=== PATIENT | female | born 1955 | race Caucasian/White ===

== ENCOUNTER → 2016-12-23 | Outpatient (CLI) | payer OTHER ==
--- NOTE | 2016-12-23 15:32 | REPMRS ---
Patient History The patient states she had a clinical breast exam in 12/2016. Patient is postmenopausal. Family history of colorectal cancer in maternal grandmother at age 50 or over. Benign excisional biopsy of the left breast. Benign excisional biopsy of the right breast. Digital Woman Screen Mammo: December 23, 2016 - Exam #: [id number] Bilateral CC and MLO view(s) were taken. Technologist: Brinda Julian, Technologist Prior study comparison: December 02, 2015, digital woman screen mammo performed at [facility]. July 24, 2014, digital woman screen mammo performed at [facility]. FINDINGS: There are scattered fibroglandular densities. There has been no change in the appearance of the mammogram from the prior studies. There is a mild amount of scattered fibroglandular density which is fairly symmetric. There is no interval development of dominant mass, architectural distortion, or clustered microcalcification suggestive of malignancy. ASSESSMENT: BI-RADS/ACR category 1 mammogram. Negative. Recommendation Routine screening mammogram in 1 year (for women over age 40). This mammogram was interpreted with the aid of an FDA-approved computer-aided dectection system. Electronically Signed By: Luis Sy MD 12/23/16 [id number]
== END ==
LOC: M WHC 14:17
PROVIDERS: ATTEND Nurse Practitioner Family
DX: Z12.31 Encounter for screening mammogram for malignant neoplasm of breast (principal)

== ENCOUNTER → 2016-12-23 | Outpatient (REF) | payer OTHER | LOC: M SFHCWAGY 14:49 | PROVIDERS: ATTEND Nurse Practitioner Family | DX: Z12.4 Encounter for screening for malignant neoplasm of cervix (principal) ==

== ENCOUNTER → 2017-04-30 | Outpatient (CLI) | payer OTHER ==
[2017-04-30 18:36] LABS: ALBUMIN 3.5 GM/DL (3.2-5.2); ALBUMIN/GLOBULIN RATIO 0.95 (1.00-1.93); ALKALINE PHOSPHATASE 86 U/L (45-117); ALT/SGPT 32 U/L (12-78); ANION GAP 8 MEQ/L (8-16); AST/SGOT 24 U/L (15-37); BILIRUBIN,TOTAL 0.5 MG/DL (0.2-1.0); BLOOD UREA NITROGEN 18 MG/DL (7-18); CALCIUM LEVEL 8.9 MG/DL (8.8-10.2); CARBON DIOXIDE LEVEL 26 MEQ/L (21-32); CHLORIDE LEVEL 106 MEQ/L (98-107); CHOLESTEROL LEVEL 222 MG/DL (<200); CREATININE FOR GFR 0.85 MG/DL (0.55-1.02); GLOMERULAR FILTRATION RATE > 60.0 (>45); GLUCOSE, FASTING 81 MG/DL (80-110); POTASSIUM SERUM 4.1 MEQ/L (3.5-5.1); SODIUM LEVEL 140 MEQ/L (136-145); TOTAL PROTEIN 7.2 GM/DL (6.4-8.2); TRIGLYCERIDES LEVEL 83 MG/DL (<150)
== END ==
LOC: M LAB 17:03
DX: Z13.220 Encounter for screening for lipoid disorders (principal); Z11.59 Encounter for screening for other viral diseases; F10.10 Alcohol abuse, uncomplicated

== ENCOUNTER → 2017-05-06 | Outpatient (CLI) | payer OTHER ==
--- NOTE | 2017-05-10 10:48 | DEXA ---
AP SPINE L1 - L4 1.284 0.7 2.2 LT FEMUR TOTAL 0.927 -0.6 0.5 RT FEMUR TOTAL 0.971 -0.3 0.8 TOTAL BODY TOTAL OTHER DUAL FEMUR FRAX* ASSESSMENT Risk factors: History of adult fracture, EtOH abuse. 10 year probability of fracture Major osteoporotic fracture 14.5 % Hip fracture 1.2 % COMMENTS: Normal bone densitometry of the spine. Normal bone densitometry of the left hip. There is low bone density of the right hip. The density of the spine has increased 2.1% since 12/2014. The density of the left hip has decreased 6.8% since 12/2014. The density of the right hip has decreased 8.3% since 12/2014. The increased density of the spine does represent a significant change. The decreased density of the left hip does represent a significant change. The decreased density of the right hip does represent a significant change. FOLLOW-UP: Recommendation for the next bone density exam: 2 years. SKYLA
== END ==
LOC: M WHC 11:26
DX: F10.10 Alcohol abuse, uncomplicated (principal)

== ENCOUNTER 2017-10-29 17:44 | Outpatient (CLI) | payer OTHER | END 2017-10-30 | LOC: M RAD 17:44 | DX: D18.01 Hemangioma of skin and subcutaneous tissue (principal); I67.82 Cerebral ischemia | CPT/HCPCS: 70551 ==

== ENCOUNTER 2017-12-06 17:51 | Emergency (ER) | payer OTHER | END 2017-12-06 23:32 | disposition home or self-care (01) | LOC: M ED 17:51 | DX: S82.854A Nondisplaced trimalleolar fracture of right lower leg, initial encounter for closed fracture (principal); W00.0XXA Fall on same level due to ice and snow, initial encounter; Y92.410 Unspecified street and highway as the place of occurrence of the external cause; Z79.899 Other long term (current) drug therapy; J30.81 Allergic rhinitis due to animal (cat) (dog) hair and dander | CPT/HCPCS: 73590 ==

== ENCOUNTER → 2017-12-11 | Outpatient (CLI) | payer OTHER | LOC: M EKG 10:48 | DX: S82.431A Displaced oblique fracture of shaft of right fibula, initial encounter for closed fracture (principal); W18.30XA Fall on same level, unspecified, initial encounter; Y92.009 Unspecified place in unspecified non-institutional (private) residence as the place of occurrence of the external cause | CPT/HCPCS: 93005 ==

== ENCOUNTER → 2018-05-12 | Outpatient (REF) | payer OTHER | LOC: M SFHCPLAZ 14:29 | DX: F32.9 Major depressive disorder, single episode, unspecified (principal) | CPT/HCPCS: 84443 ==

== ENCOUNTER → 2018-06-08 | Outpatient (REF) | payer OTHER ==
[2018-06-10 14:46] LABS: HPV HYBRID CAPTURE II Negative (Negative)
== END ==
LOC: M SFHCWAGY 09:33
DX: Z12.4 Encounter for screening for malignant neoplasm of cervix (principal)

== ENCOUNTER → 2018-06-11 | Outpatient (CLI) | payer OTHER | LOC: M RAD 14:48 | DX: D18.01 Hemangioma of skin and subcutaneous tissue (principal) | CPT/HCPCS: 70551 ==

== ENCOUNTER → 2018-06-16 | Outpatient (CLI) | payer OTHER | LOC: M RAD 09:25 | DX: N63.12 Unspecified lump in the right breast, upper inner quadrant (principal); R92.1 Mammographic calcification found on diagnostic imaging of breast | CPT/HCPCS: 77066 ==

== ENCOUNTER → 2018-07-06 | Outpatient (CLI) | payer OTHER ==
[~2018-07-06] MED LIST: LIDOCAINE 1% MDV 20ML VIAL As Ordered
== END ==
LOC: M RADPRO 12:36
DX: N63.0 Unspecified lump in unspecified breast (principal)
CPT/HCPCS: 76642

== ENCOUNTER → 2018-12-13 | Outpatient (CLI) | payer MEDICARE ==
[~2018-12-13] MED LIST changes: +FOLI1TAB11; -LIDOCAINE 1% MDV 20ML VIAL As Ordered; +NORCOTAB PO; +PROZ20CA11; +VITA100T8
--- NOTE | 2018-12-13 15:10 | REP ---
RIGHT BREAST ULTRASOUND: 12/13/2018: Comparison: 07/06/2018, 06/16/2018, diagnostic mammogram 06/16/2018. Clinical history: Benign excisional biopsy left breast, Follow-up for retroareolar dilated ducts with a 4 mm dense nodular density in one of the ducts 06/16 19, not visible on 07/06/2018. Follow-up. Findings: Sonographic evaluation shows one dilated duct 2.4 mm in diameter for length of 9 mm. There are no other dilated ducts. There is no filling defect visible within. Some artifact on some of the images is noted in the retroareolar zone. Impression: 1. BIRADS ACR category 2, benign finding. One dilated duct without filling defects. Maximum diameter 2.4 mm. No gross mass, architectural distortion or other acute finding. Recommend: Follow up with bilateral mammogram in 05/2019. This negative report should not deter further evaluation of a dominant or suspicious physical finding.
== END ==
LOC: M WHC 12:50
PROVIDERS: ATTEND Internal Medicine
DX: N63.12 Unspecified lump in the right breast, upper inner quadrant (principal)

== ENCOUNTER → 2019-07-05 | Outpatient (CLI) | payer MEDICARE ==
[~2019-07-05] MED LIST changes: +HYDR-3715 PO; -NORCOTAB PO
--- NOTE | 2019-07-05 14:33 | REP ---
BILATERAL MAMMOGRAM WITH 3D TOMOSYNTHESIS, RIGHT BREAST ULTRASOUND: Bilateral mammogram performed in the MLO and CC projections with 3D tomosynthesis. Comparison is made with prior studies most recent of which is 06/16/2018. Moderate heterogeneous fibroglandular tissue is stable. No new mass or clustered microcalcifications are seen. There are bilateral axillary and axillary tail lymph nodes, which appear unchanged in size. No suspicious clusters of microcalcifications are seen. Real-time sonographic evaluation of right retroareolar region is performed to evaluate for any possible nodule. An echogenic nodule was suspected on the prior ultrasound 06/16/2018 but could not be reproduced at the time of the scheduled biopsy 07/06/2018. The ultrasound once again shows mildly dilated ducts. Heterogeneous tissue is again seen unchanged in appearance when compared to the prior ultrasound with no suspicious nodule. IMPRESSION: BIRADS 2: BI-RADS/ACR category 2 mammogram. Benign Findings. ACR2 benign. No new mass or clustered microcalcifications bilaterally. No suspicious mass seen in the right retroareolar region sonographically. Recommend followup mammogram in 1 year. Patient letter being requested is M1. Electronically Signed by Jordin De Leon MD 07/06/2019 09:34 A
== END ==
LOC: M RAD 11:25
PROVIDERS: ATTEND Internal Medicine
DX: N63.10 Unspecified lump in the right breast, unspecified quadrant (principal); Z12.31 Encounter for screening mammogram for malignant neoplasm of breast
CPT/HCPCS: 76642; 77066; G0279

== ENCOUNTER → 2020-08-27 | Outpatient (REF) | payer MEDICARE | LOC: M SFHCPLAZ 13:17 | PROVIDERS: ATTEND Physician Assistant | DX: S60.311A Abrasion of right thumb, initial encounter (principal); X58.XXXA Exposure to other specified factors, initial encounter; Y92.9 Unspecified place or not applicable; L02.511 Cutaneous abscess of right hand; Z23 Encounter for immunization | CPT/HCPCS: 10060; 87070; 87077; 87186; 90472; 90682; 90715; G0008 ==

== ENCOUNTER 2020-12-18 14:36 | Emergency (ER) | payer MEDICARE ==
[~2020-12-18] VITALS: Ht 162.6 cm; Wt 94.2 kg
[~2020-12-18 14:36] MED LIST changes: -PROZ20CA11; +PROZ20CA11 PO
--- OUTSIDE RECORDS SUMMARY | 2020-12-18 14:48 | CCD ---
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 3 1750374 Problem Alcohol abuse F10.10 Active 07073041 Problem Screening for breast cancer Z12.39 Active 2433 92506 Problem Mixed hyperlipidemia E78.2 Active 362348284 ALLERGIES Allergen (clinical drug ingredient) Drug/Non Drug Allergy do cumented on EMR Reaction Allergy Type Onset Date Status dust cold symptoms Non Drug Allergy Activ e cats dyspnea Non Drug Allergy Active ENCOUNTERS from 1955 to 2020-11-05 Encounter Location Date Provider Diagnosis [address] [address] 11 Oct, 2020 [facility] IMMUNIZATIONS Vaccine Route Administration Date Status Influenza (18 yrs & older) Flublok IM Intramuscular Aug 04, 2018 Administered Pneumococcal Adult 0.5mL (Pneumovax 23) IM Intramuscular Jun Administered TDAP 0.5mL (Boostrix) IM Intramuscular Aug 27, 2020 Administe red TDAP 0.5mL (Boostrix) Unknown Aug 23, 2014 Administer ed Pneumococcal 0.5mL (Prevnar 13) IM Intramuscular Dec 15, 2019 Administered Influenza (6mo & up) Fluzone IM Intramuscular Oct 01, 2017 Ad ministered Influenza (18 yrs & older) Flublok IM Intramuscular Dec 15, 2019 Administered Influenza (6mo & up) Fluzone IM Intramuscular Jul 10, 2016 Ad ministered Influenza (18 yrs & older) Flublok IM Intramuscular Aug 27, 2020 Administered Influenza (6mo & up) Fluzone IM Intramuscular Jul 18, 2015 Ad ministered Influenza (6mo & up) Fluzone IM Intramuscular Aug 23, 2014 Ad ministered SOCIAL HISTORY Tobacco Use: Social History Observation Description Date Details (start date - stop date) Former Smoker Sex Assigned At : Social History Observation Description Sex Assigned At Unknown Education: Question Answer Notes Level of Education: Finished High School Audit Question Answer Notes Total Score: 3 Interpretation: Alcohol Education Nondenominational: Question Answer Notes Nondenominational 21 Taoism Sexual Hx: Question Answer Notes Had sex in the last 12 months (vaginal, oral, or anal)? No Have you ever had an STD? No Drug and Alcohol Question Answer Notes Total Score: 0 Interpretation: No problems reported Alcohol Screening: Question Answer Notes Did you have a drink containing alcohol in the past year? Ye s Points 6 Interpretation Positive How often did you have six or more drinks on one occas ion in the past year? Less than monthly (1 point) How many drinks did you have on a typica l day when you were drinking in the past year? 3 or 4 (1 point) How often did you have a drink containing alcohol in t he past year? Four or more times a week (4 points) BMI Care Goal Follow-Up Question Answer Notes Above Normal BMI Follow-Up Dietary management educatio n, guidance, and counseling, Giving encouragement to exercise Tobacco Use: Question Answer Notes Are you a: former smoker How long has it been since you last smoked? > 10 years REASON FOR REFERRAL No Information VITAL SIGNS No information MEDICATIONS Medication SIG (Take, Route, Frequency, Duration) Notes Start Da te End Date Status Prozac 20 mg 2 capsules orally Daily for 30 day(s) Not-Taking Vitamin D (Cholecalciferol) 1000 UNIT 1 capsule Orally Once a day Not-Taking Prozac 20 MG take two capsules by mouth e very day Orally Once a day for 30 day(s) Active Bactrim DS 800-160 MG 1 tablet Orally Twice a day for 10 day(s) Aug, Active Prozac 20 MG TAKE TWO CAPSULES BY MOUTH EVERY DAY Ora lly Once a day for 30 days Active PROCEDURES No Information RESULTS No Results REASON FOR VISIT refill prozac MEDICAL (GENERAL) HISTORY Type Description Date Medical History depression/anxiety Medical History cat.4 mammogram/2004, had mr i delmis./ 2005 , Mammography 11/2015- category 1 Medical History environmental allergies Medical History alcoholism Medical History Nontoxic multinodular goiter -negative for malignancy with variable sized follicular groups, Hurthle cells, macrophages, and scattered lymphocytes. Followed by Dr. Morris next appt fall 2015 Medical History Colonscopy - latest (09/2014 ) one small hyperplastic polyp resected, non-bleeding internal hemorrhoid Surgical History breast biopsy/ right breast 2004-atypical ductal hyperplasia, left breast bx. 2005, benign 2004,2005 Surgical History tubal ligation 1995 Surgical History tonsillectomy age 6 Surgical History Colonoscopy, - leonela ne small hyperplastic polyp resected, non-bleeding internal hemorrhoid 09/2014 Surgical History Thyroid BX 04/09/15 Surgical History right ankle surgery 12/16/2017 Hospitalization History related to surgery Goals Section No Information Health Concerns No Information MEDICAL EQUIPMENT No Information MENTAL STATUS No Information FUNCTIONAL STATUS No Information ASSESSMENTS No Information PLAN OF TREATMENT Medication Medication Name Sig Start Date Stop Date Prozac 20 MG take two capsules by mouth e very day Orally Once a day for 30 day(s) Bactrim DS 800-160 MG 1 tablet Orally Twice a day for 10 day(s) Aug, Prozac 20 MG TAKE TWO CAPSULES BY MOUTH EVERY DAY Ora lly Once a day for 30 days Insurance Providers Payer Name Payer Address Payer Phone Insured Name Patient Relati onship to Insured Coverage Start Date Coverage End Date MEDICARE COMPLETE [facility] [address] [address] [facility] [phone] MARCIAL CMAPOS self MEDICAID [facility] [employer] [address] [facility] [id number] MARCIAL CAMPOS self
--- OUTSIDE RECORDS SUMMARY | 2020-12-18 14:48 | CCD ---
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 3 3993435 Problem Alcohol abuse F10.10 Active 76382480 Problem Screening for breast cancer Z12.39 Active 2431 94231 Problem Mixed hyperlipidemia E78.2 Active 611576789 ALLERGIES Allergen (clinical drug ingredient) Drug/Non Drug Allergy do cumented on EMR Reaction Allergy Type Onset Date Status Dust dust cold symptoms Non Drug Allergy Activ e cats dyspnea Non Drug Allergy Active ENCOUNTERS from 1955 to 2020-11-07 Encounter Location Date Provider Diagnosis [facility] [place] [place] Resident [address] [place] [address] 13 Oct, 2020 [facility] IMMUNIZATIONS Vaccine Route Administration Date Status Influenza (18 yrs & older) Flublok IM Intramuscular Dec 15, 2019 Administered Influenza (18 yrs & older) Flublok IM Intramuscular Aug 04, 2018 Administered Pneumococcal Adult 0.5mL (Pneumovax 23) IM Intramuscular Jun Administered TDAP 0.5mL (Boostrix) Unknown Aug 23, 2014 Administer ed Pneumococcal 0.5mL (Prevnar 13) IM Intramuscular Dec 15, 2019 Administered Influenza (6mo & up) Fluzone IM Intramuscular Oct 01, 2017 Ad ministered Influenza (18 yrs & older) Flublok IM Intramuscular Aug 27, 2020 Administered Influenza (6mo & up) Fluzone IM Intramuscular Jul 10, 2016 Ad ministered TDAP 0.5mL (Boostrix) IM Intramuscular Aug 27, 2020 Administe red Influenza (6mo & up) Fluzone IM Intramuscular [...] Notes Total Score: 3 Interpretation: Alcohol Education Quaker: Question Answer Notes Quaker 21 Christianity Sexual Hx: Question Answer Notes Had sex [...] Information RESULTS No Results REASON FOR VISIT No Information MEDICAL (GENERAL) HISTORY Type Description Date Medical History depression/anxiety Medical History cat.4 mammogram/2004, had mr lois delmis./ 2005 , Mammography 11/2015- category 1 [...] Start Date Coverage End Date MEDICARE COMPLETE [facility] [address] [address] [facility] [id number] MARCIAL MARQUEZ self MEDICAID [facility] [address] [facility] [id number] MARCIAL MARQUEZ self
--- OUTSIDE RECORDS SUMMARY | 2020-12-18 14:48 | CCD ---
Author Author [facility] Organization [facility] Address [address] [place], [place] [address] Phone Care Team Providers Care Varnishing Unit Tool Setter Name Role Phone JUNIOR REYES Unavailable Allergies, Adverse Reactions, Alerts No Known Drug Allerg ies 10/01/2019 Medications * Continue: * CHINTAN HOLM DOG TRACK KENNEL MANAGER * Augmentin 875 mg-125 mg tablet , Take 1 tablet orally Every 12 hours 10/01/2019 * Flonase Allergy Relief 50 mcg/actuation nasal spray,suspension , Take 2 spray, suspension (mL) nasally Every day 10/01/2019 * Pre-existing: * PROzac 40 mg capsule Problems Acute sinusitis, unspecified (J01.90) Wheezing (R06.2) 10/01/2019 Encounter for observation for suspected exposure to other biological agents ruled out (Z03.818) 09/29/2020 Cough (R05) 09/29/2020 Myalgia, unspecified site (M79.10) 2019 Results SARS COV2 SOURCE: NASOPHARYNGEAL 020 SARS COV 2 BY PCR: DETECTED 09/29/2020 Chief Complaint/Reason for Visit Rapid Covid negativeRapid flu negativePC R sentPatient educated on supportive management and exam did not reveal any findings that would be suggestive of a pneumonia or other bacterial infectionPatient educated on supportive managementFollow up with any worsening symptoms COVID TEST Patient's exam is consistent with an acu te sinusitis and possible ear infectionGiven duration of symptoms and concurrent ear symptoms, I will treat with Augmentin and a nasal sprayDiscussed with patient that drinking while taking this medication will likely cause nausea or diarrheaDaily allergy medication recommended, Tylenol or Motrin as needed for fever or painFollow-up with any worsening symptoms bronchitis Procedures Performed and Ordered Today * MED SERV, ISHA/WKEND/HOLIDAY 09/29/2020 * INFECTIOUS AGENT ANTIGEN DETECTION 09/29/2020 * MED SERV, ISHA/WKEND/HOLIDAY 10/01/2019 * * Lab: Influenza Molecular Test 09/29/2020 COVID PCR 09/29/2020 Vital signs Body Temperature: Heart Rate: BP: Height: Weight: BMI: O2 Percentage BldC Oximetry: Inhale d Oxygen Concentration: 97.9F 09/29/2020 85 beats per minute 09/29/2020 144/92 mmHg 10/01/2019 5ft, 4in 10/01/2019 207lbs 10/01/2019 35.528 10/01/2019 97% 09/29/2020 21% 09/29/2020 Immunizations Social History Smoking Status: Never smoker. 10/01/2019 Reason for Referral Functional Status Plan of Treatment Appointments [facility] ed: Tuesday, October 01, 2019, 11:10 AM, CHINTAN HOLM DOG TRACK KENNEL MANAGER Tuesday, September 29, 2020, 10:15 AM, JING OLSON DOG TRACK KENNEL MANAGER Instructions: The health department is contacted with all positive and negative results. <Follow up with primary care> We will call with lab and/or xray results Testing for COVID19 is negative. However - negative results do not rule out a SARS CoV-2 infection, particularly in those who have been in contact with the virus.PCR sentFlu negativeExam is unremarkableAdvised on supportive symptom managementFollow with any worsening symptomsWork note providedQuarantine until you are notified of results <Follow up with primary care> Return if symptoms worsen When taking antibiotics, also take probiotics. Patient's exam is consistent with an acute sinusitis and possible ear infectionGiven duration of symptoms and concurrent ear symptoms, I will treat with Augmentin and a nasal sprayDiscussed with patient that drinking while taking this medication will likely cause nausea or diarrheaDaily allergy medication recommended, Tylenol or Motrin as needed for fever or painFollow-up with any worsening symptoms Payers Insurance Policy Type Po licy ID Relation Subscriber Expi ration [facility] Commercial Insurance [id number] Self MARCIAL ALMA ID IDENTIFICATION Other Insurance Kirill MARQUEZ Encounters OFFICE/OUTPATIENT SIT, EST 09/29/2020 Diagnoses Encounter for observation for suspected exposure to other biological agents ruled out Cough Myalgia, unspecified site Wheezing OFFICE/OUTPATIENT SIT, NEW 10/01/2019
--- OUTSIDE RECORDS SUMMARY | 2020-12-18 14:48 | CCD ---
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 3 4043363 Problem Alcohol abuse F10.10 Active 94619811 Problem Screening for breast cancer Z12.39 Active 2433 45217 Problem Mixed hyperlipidemia E78.2 Active 603542991 ALLERGIES Allergen (clinical drug ingredient) Drug/Non Drug Allergy do cumented on EMR Reaction Allergy Type Onset Date Status Dust dust cold symptoms Non Drug Allergy Activ e cats dyspnea Non Drug Allergy Active ENCOUNTERS from 1955 to 2020-11-07 Encounter Location Date Provider Diagnosis [address] [address] 08 Oct, 2020 [facility] Major depressive disorder, single episod e, unspecified F32.9 IMMUNIZATIONS Vaccine Route Administration Date Status Influenza [...] Notes Total Score: 3 Interpretation: Alcohol Education Gnosticism: Question Answer Notes Gnosticism 21 Quaker Sexual Hx: Question Answer Notes Had sex [...] Information RESULTS No Results REASON FOR VISIT New Refill Request MEDICAL (GENERAL) HISTORY Type Description Date Medical [...] No Information FUNCTIONAL STATUS No Information ASSESSMENTS Encounter Date Diagnosis Assessment Notes Treatment Notes Treatm ent Clinical Notes Oct, Major depressive disorder, s janis episode, unspecified (ICD-10 - F32.9) PLAN OF TREATMENT Medication Medication Name Sig [...] Start Date Coverage End Date MEDICARE COMPLETE [facility] [address] [facility] [id number] MARCIAL CAMPOS MEDICAID [employer] [address] [facility] [id number] MARCIAL CAMPOS self
--- OUTSIDE RECORDS SUMMARY | 2020-12-18 14:49 | CCD ---
Author Author [facility] Organization [facility] Address Unknown Phone Unavailable Care Team Providers Care Banana Loader Name Role Phone Potter, M Alondra SIGNALS COLLECTOR/ANALYST Unavailable Unavailable Potter, M Alondra SIGNALS COLLECTOR/ANALYST Unavailable Unavailable Potter, M Alondra SIGNALS COLLECTOR/ANALYST Unavailable Unavailable Potter, M Alondra SIGNALS COLLECTOR/ANALYST Unavailable Unavailable Potter, M Alondra SIGNALS COLLECTOR/ANALYST Unavailable Unavailable Potter, M Alondra SIGNALS COLLECTOR/ANALYST Unavailable Unavailable Potter, M Alondra SIGNALS COLLECTOR/ANALYST Unavailable Unavailable Potter, M Alondra SIGNALS COLLECTOR/ANALYST Unavailable Unavailable Potter, M Alondra SIGNALS COLLECTOR/ANALYST Unavailable Unavailable Potter, M Alondra SIGNALS COLLECTOR/ANALYST Unavailable Unavailable Potter, M Alondra SIGNALS COLLECTOR/ANALYST Unavailable Unavailable Potter, M Alondra SIGNALS COLLECTOR/ANALYST Unavailable Unavailable Potter, M Alondra SIGNALS COLLECTOR/ANALYST Unavailable Unavailable Potter, M Alondra SIGNALS COLLECTOR/ANALYST Unavailable Unavailable Potter, M Alondra SIGNALS COLLECTOR/ANALYST Unavailable Unavailable Potter, M Alondra SIGNALS COLLECTOR/ANALYST Unavailable Unavailable Potter, M Alondra SIGNALS COLLECTOR/ANALYST Unavailable Unavailable Potter, M Alondra SIGNALS COLLECTOR/ANALYST Unavailable Unavailable Potter, M Alondra SIGNALS COLLECTOR/ANALYST Unavailable Unavailable Potter, M Alondra SIGNALS COLLECTOR/ANALYST Unavailable Unavailable Potter, M Alondra SIGNALS COLLECTOR/ANALYST Unavailable Unavailable Potter, M Alondra SIGNALS COLLECTOR/ANALYST Unavailable Unavailable Potter, M Alondra SIGNALS COLLECTOR/ANALYST Unavailable Unavailable Potter, M Alondra SIGNALS COLLECTOR/ANALYST Unavailable Unavailable Potter, M Alondra SIGNALS COLLECTOR/ANALYST Unavailable Unavailable Potter, M Alondra SIGNALS COLLECTOR/ANALYST Unavailable Unavailable Potter, M Alondra SIGNALS COLLECTOR/ANALYST Unavailable Unavailable Potter, M Alondra SIGNALS COLLECTOR/ANALYST Unavailable Unavailable Potter, M Alondra SIGNALS COLLECTOR/ANALYST Unavailable Unavailable Potter, M Alondra SIGNALS COLLECTOR/ANALYST Unavailable Unavailable Potter, M Alondra SIGNALS COLLECTOR/ANALYST Unavailable Unavailable Potter, M Alondra SIGNALS COLLECTOR/ANALYST Unavailable Unavailable Potter, M Alondra SIGNALS COLLECTOR/ANALYST Unavailable Unavailable Potter, M Alondra SIGNALS COLLECTOR/ANALYST Unavailable Unavailable Potter, M Alondra SIGNALS COLLECTOR/ANALYST Unavailable Unavailable Potter, M Alondra SIGNALS COLLECTOR/ANALYST Unavailable Unavailable Potter, M Alondra SIGNALS COLLECTOR/ANALYST Unavailable Unavailable Potter, M Alondra SIGNALS COLLECTOR/ANALYST Unavailable Unavailable Potter, M Alondra SIGNALS COLLECTOR/ANALYST Unavailable Unavailable Potter, M Alondra SIGNALS COLLECTOR/ANALYST Unavailable Unavailable Potter, M Alondra SIGNALS COLLECTOR/ANALYST Unavailable Unavailable Potter, M Alondra SIGNALS COLLECTOR/ANALYST Unavailable Unavailable Potter, M Alondra SIGNALS COLLECTOR/ANALYST Unavailable Unavailable Potter, M Alondra SIGNALS COLLECTOR/ANALYST Unavailable Unavailable Potter, M Alondra SIGNALS COLLECTOR/ANALYST Unavailable Unavailable Potter, M Alondra SIGNALS COLLECTOR/ANALYST Unavailable Unavailable Potter, M Alondra SIGNALS COLLECTOR/ANALYST Unavailable Unavailable Potter, M Alondra SIGNALS COLLECTOR/ANALYST Unavailable Unavailable Potter, M Alondra SIGNALS COLLECTOR/ANALYST Unavailable Unavailable Potter, M Alondra SIGNALS COLLECTOR/ANALYST Unavailable Unavailable Potter, M Alondra SIGNALS COLLECTOR/ANALYST Unavailable Unavailable Potter, M Alondra SIGNALS COLLECTOR/ANALYST Unavailable Unavailable Potter, M Alondra SIGNALS COLLECTOR/ANALYST Unavailable Unavailable Potter, M Alondra SIGNALS COLLECTOR/ANALYST Unavailable Unavailable Potter, M Alondra SIGNALS COLLECTOR/ANALYST Unavailable Unavailable RING, K CORBIN PA Unavailable Unavailable RING, K CORBIN PA Unavailable Unavailable RING, K CORBIN PA Unavailable Unavailable RING, K CORBIN PA Unavailable Unavailable RING, K CORBIN PA Unavailable Unavailable RING, K CORBIN PA Unavailable Unavailable RING, K CORBIN PA Unavailable Unavailable RING, K CORBIN PA Unavailable Unavailable RING, K CORBIN PA Unavailable Unavailable RING, K CORBIN PA Unavailable Unavailable RING, K CORBIN PA Unavailable Unavailable RING, K CORBIN PA Unavailable Unavailable RING, K CORBIN PA Unavailable Unavailable RING, K CORBIN PA Unavailable Unavailable RING, K CORBIN PA Unavailable Unavailable RING, K CORBIN PA Unavailable Unavailable RING, K CORBIN PA Unavailable Unavailable RING, K CORBIN PA Unavailable Unavailable RING, K CORBIN PA Unavailable Unavailable RING, K CORBIN PA Unavailable Unavailable RING, K CORBIN PA Unavailable Unavailable Dille, E Tita DDS Unavailable Unavailable Dille, E Tita DDS Unavailable Unavailable Dille, E Tita DDS Unavailable Unavailable Dille, E Tita DDS Unavailable Unavailable Re-disclosure Warning The records that you are about to access may contain information from federally-assisted alcohol or drug abuse programs. If such information is present, then the following federally mandated warning applies: This information has been disclosed to you from records protected by federal confidentiality rules (42 CFR part 2). The federal rules prohibit you from making any further disclosure of this information unless further disclosure is expressly permitted by the written consent of the person to whom it pertains or as otherwise permitted by 42 CFR part 2. A general authorization for the release of medical or other information is NOT sufficient for this purpose. The Federal rules restrict any use of the information to criminally investigate or prosecute any alcohol or drug abuse patient.The records that you are about to access may contain highly sensitive health information, the redisclosure of which is protected by Article 27-F of the [place] State Public Health law. If you continue you may have access to information: Regarding HIV / AIDS; Provided by facilities licensed or operated by the [facility] Office of Mental Health; or Provided by the [facility] Office for People With Developmental Disabilities. If such information is present, then the following [facility] mandated warning applies: This information has been disclosed to you from confidential records which are protected by state law. State law prohibits you from making any further disclosure of this information without the specific written consent of the person to whom it pertains, or as otherwise permitted by law. Any unauthorized further disclosure in violation of state law may result in a fine or group home sentence or both. A general authorization for the release of medical or other information is NOT sufficient authorization for further disc losure. Allergies and Adverse Reactions Type Description Substance Reaction Status Data Source(s ) cats cats cats dyspnea Active eCW1 ([facility]) dust dust dust cold symptoms Active eCW1 (Formerly [facility]) Family History Family Member Name Family Member Gender Family Member Status Date o f Status Description Data Source(s) Unknown Male Problem MEDENT ([facility], ) () Encounters Encounter Providers Location Date Indications Data Source(s ) Unknown [address] [place] [phone] 11/06/2020 12:00:00 AM EST eCW1 (Pending sale to [facility]) Unknown [address] [place] [phone] 11/04/2020 12:00:00 AM EST eCW1 (Pending sale to [facility]) Unknown [address] [place] [phone] 11/01/2020 12:00:00 AM EST eCW1 (Pending sale to [facility]) OutpatientOFFICE/OUTPATIENT VISIT, EST 09/29/2020 Attender: Becky Gutierrez NP 09/29/2020 10:35:02 AM EST 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 ([facility]) Office Visit, Est Pt., Level 3 [address] [place] [address] 08/27/2020 12:00:00 AM EST eCW1 ([facility]) Unknown [address] [place] [phone] 08/26/2020 12:00:00 AM EST [facility] Outpatient Attender: Tita Mancuso ANIBALLeandro CLINT 07/16/2020 12:02:04 A M EDT [facility] Outpatient Attender: Tita Mancuso DDS CLINT 03/24/2020 12:03:02 A M EDT [facility] [place] [address] [facility] [address] 02/07/2020 12:00:00 AM EDT eCW1 [facility]) [facility] [place] [address] [facility] [address] 02/07/2020 12:00:00 AM EDT eCW1 (Pending sale to [facility]) [facility] [address] [facility] [address] 02/05/2020 12:00:00 AM EDT eCW1 (Pending sale to [facility]) [facility] [address] [place] [address], [place] [address] 01/18/2020 12:00:00 AM EDT eCW1 ([facility]) [facility] [place] [address] [place] [phone] 12/15/2019 12:00:00 AM EST eCW1 (Pending sale to [facility]) Outpatient Attender: [facility]ita [facility]uso [facility] 11/13/2019 04:02:01 P M EST [facility] Outpatient Attender: CORBIN Hung 10/21/2019 12:25:00 PM EST MEDENT ([facility] Immunizations Vaccine Date Status Description Data Source(s) Tdap 08/27/2020 10:00:00 AM EST completed e CW1 ([facility]) Tdap 08/27/2020 10:00:00 AM EST completed e CW1 ([facility]) Tdap 08/27/2020 10:00:00 AM EST completed e CW1 ([facility]) Tdap 08/27/2020 10:00:00 AM EST completed e CW1 ([facility]) Tdap 08/27/2020 10:00:00 AM EST completed e CW1 ([facility]) influenza, recombinant, quadrIvalent,injectable, prese rvative free 08/27/2020 09:59:00 AM EST completed eCW1 ([facility]) influenza, recombinant, quadrIvalent,injectable, prese rvative free 08/27/2020 09:59:00 AM EST completed eCW1 ([facility]) influenza, recombinant, quadrIvalent,injectable, prese rvative free 08/27/2020 09:59:00 AM EST completed eCW1 ([facility]) influenza, recombinant, quadrIvalent,injectable, prese rvative free 08/27/2020 09:59:00 AM EST completed eCW1 ([facility]) influenza, recombinant, quadrIvalent,injectable, prese rvative free 08/27/2020 09:59:00 AM EST completed eCW1 ([facility]) influenza, recombinant, quadrIvalent,injectable, prese rvative free 12/15/2019 03:41:00 PM EST completed eCW1 ([facility]) influenza, recombinant, quadrIvalent,injectable, prese rvative free 12/15/2019 03:41:00 PM EST completed eCW1 ([facility]) influenza, recombinant, quadrIvalent,injectable, prese rvative free 12/15/2019 03:41:00 PM EST completed eCW1 ([facility]) influenza, recombinant, quadrIvalent,injectable, prese rvative free 12/15/2019 03:41:00 PM EST completed eCW1 ([facility]) influenza, recombinant, quadrIvalent,injectable, prese rvative free 12/15/2019 03:41:00 PM EST completed eCW1 ([facility]) influenza, recombinant, quadrIvalent,injectable, prese rvative free 12/15/2019 03:41:00 PM EST completed eCW1 ([facility]) Pneumococcal conjugate PCV 13 12/15/2019 03:37:00 PM EST completed eCW1 ([facility]) Pneumococcal conjugate PCV 13 12/15/2019 03:37:00 PM EST completed eCW1 ([facility]) Pneumococcal conjugate PCV 13 12/15/2019 03:37:00 PM EST completed eCW1 ([facility]) Pneumococcal conjugate PCV 13 12/15/2019 03:37:00 PM EST completed eCW1 ([facility]) Pneumococcal conjugate PCV 13 12/15/2019 03:37:00 PM EST completed eCW1 ([facility]) Pneumococcal conjugate PCV 13 12/15/2019 03:37:00 PM EST completed eCW1 ([facility]) Medications Medication Brand Name Start Date Product Form Dose Route Admi nistrative Instructions Pharmacy Instructions Status Indications Reaction Description Data Source(s) 20 mg 11/05/2020 12:00:00 AM EST capsule 60 TAKE TWO CAPSULES BY MOUTH EVERY DAY TAKE TWO CAPSULES BY MOUTH EVERY DAY SOLD: 12/05/2020 [facility] 20 mg 11/05/2020 12:00:00 AM EST capsule 60 TAKE TWO CAPSULES BY MOUTH EVERY DAY TAKE TWO CAPSULES BY MOUTH EVERY DAY SOLD: 11/06/2020 [facility] Sulfamethoxazole 800 MG / Trimethoprim 1 60 MG Oral Tablet [Bactrim] Bactrim DS 800-160 MG Bactrim DS 800-160 MG 08/27/2020 12:00:00 AM EST 1.0 {table t} active Bactrim DS 800-160 MG eCW1 ( [facility]) Sulfamethoxazole 800 MG / Trimethoprim 1 60 MG Oral Tablet [Bactrim] Bactrim DS 800-160 MG Bactrim DS 800-160 MG 08/27/2020 12:00:00 AM EST 1.0 {table t} active Bactrim DS 800-160 MG eCW1 ( [facility]) Sulfamethoxazole 800 MG / Trimethoprim 1 60 MG Oral Tablet [Bactrim] Bactrim DS 800-160 MG Bactrim DS 800-160 MG 08/27/2020 12:00:00 AM EST 1.0 {table t} active Bactrim DS 800-160 MG eCW1 ( [facility]) Sulfamethoxazole 800 MG / Trimethoprim 1 60 MG Oral Tablet [Bactrim] Bactrim DS 800-160 MG Bactrim DS 800-160 MG 08/27/2020 12:00:00 AM EST 1.0 {table t} active Bactrim DS 800-160 MG eCW1 ( [facility]) Sulfamethoxazole 800 MG / Trimethoprim 1 60 MG Oral Tablet [Bactrim] Bactrim DS 800-160 MG Bactrim DS 800-160 MG 08/27/2020 12:00:00 AM EST 1.0 {table t} active Bactrim DS 800-160 MG eCW1 ( [facility]) Sulfamethoxazole 800 MG / Trimethoprim 160 MG Oral Tab let 800-160 mg SULFAMETHOXAZOLE/TRIMETHOPRIM 08/27/2020 12:00:00 AM EST tablet 20 TAKE ONE TABLET BY MOUTH TWICE A DAY FOR 10 DAYS TAKE ONE TABLET BY MOUTH TWICE A DAY FOR 10 DAYS SOLD: 08/27/2020 [facility] 20 mg 05/02/2020 12:00:00 AM EDT capsule 60 TAKE TWO CAPSULES BY MOUTH EVERY DAY TAKE TWO CAPSULES BY MOUTH EVERY DAY SOLD: 05/04/2020 [facility] 20 mg 05/02/2020 12:00:00 AM EDT capsule 60 TAKE TWO CAPSULES BY MOUTH EVERY DAY TAKE TWO CAPSULES BY MOUTH EVERY DAY SOLD: 09/03/2020 [facility] 20 mg 05/02/2020 12:00:00 AM EDT capsule 60 TAKE TWO CAPSULES BY MOUTH EVERY DAY TAKE TWO CAPSULES BY MOUTH EVERY DAY SOLD: 08/05/2020 [facility] 20 mg 05/02/2020 12:00:00 AM EDT capsule 60 TAKE TWO CAPSULES BY MOUTH EVERY DAY TAKE TWO CAPSULES BY MOUTH EVERY DAY SOLD: 07/03/2020 [facility] 20 mg 05/02/2020 12:00:00 AM EDT capsule 60 TAKE TWO CAPSULES BY MOUTH EVERY DAY TAKE TWO CAPSULES BY MOUTH EVERY DAY SOLD: 06/03/2020 [facility] 20 mg 05/02/2020 12:00:00 AM EDT capsule 60 TAKE TWO CAPSULES BY MOUTH EVERY DAY TAKE TWO CAPSULES BY MOUTH EVERY DAY SOLD: 10/05/2020 [facility] 20 mg 12/14/2019 12:00:00 AM EST capsule 60 TAKE TWO CAPSULES BY MOUTH EVERY DAY TAKE TWO CAPSULES BY MOUTH EVERY DAY SOLD: 01/14/2020 [facility] 20 mg 12/14/2019 12:00:00 AM EST capsule 60 TAKE TWO CAPSULES BY MOUTH EVERY DAY TAKE TWO CAPSULES BY MOUTH EVERY DAY SOLD: 12/15/2019 [facility] 20 mg 12/14/2019 12:00:00 AM EST capsule 60 TAKE TWO CAPSULES BY MOUTH EVERY DAY TAKE TWO CAPSULES BY MOUTH EVERY DAY SOLD: 02/27/2020 [facility] 100 mg 10/21/2019 12:00:00 AM EST capsule 20 TAKE ONE CAPSULE BY MOUTH TWICE A DAY FOR 10 DAYS TAKE ONE CAPSULE BY MOUTH TWICE A DAY FOR 10 DAYS SOLD : 10/21/2019 [facility] 20 mg 10/21/2019 12:00:00 AM EST tablet 8 TAKE ONE TABLET BY MOUTH TWICE A DAY FOR 4 DAYS TAKE ONE TABLET BY MOUTH TWICE A DAY FOR 4 DAYS SOLD: 2018 [facility] 90 mcg/actuation 10/21/2019 12:00:00 AM EST HFA aerosol inha ler 8 INHALE TWO PUFFS BY MOUTH EVERY 4 TO 6 HOURS NEEDED FOR COUGH AND WHEEZING INHALE TWO PUFFS BY MOUTH EVERY 4 TO 6 HOURS NEEDED FOR COUGH AND WHEEZING SOLD: 10/21/2019 [facility]) Prednisone 20 MG Oral Tablet Prednisone 10/21/2019 12:00:00 AM EST ORAL active MEDENT ([facility], [facility]) 200 ACTUAT Albuterol 0.09 MG/ACTUAT Metered Dose Inhaler [Pr oAir] Proair HFA 10/21/2019 12:00:00 AM EST ORAL active MEDENT ([facility]) Doxycycline Monohydrate 100 MG Oral Capsule Doxycycline [place] hydrate 10/21/2019 12:00:00 AM EST ORAL active M EDENT ([facility], [facility]) 20 mg 07/14/2019 12:00:00 AM EDT capsule 60 TAKE TWO CAPSULES BY MOUTH EVERY DAY TAKE TWO CAPSULES BY MOUTH EVERY DAY SOLD: 11/15/2019 [facility] ([employer] [facility]) Insurance Providers Payer name Policy type / Coverage type Policy ID Covered democrat ID Covered democrat's relationship to velazquez Policy Velazquez Plan Information ID IDENTIFICATION [id number] Other In surance [id number] [facility] [id number] Commercial Insuranc e [id number] MEDICARE COMPLETE [id number] SP [id number] Self Pay P [id number] S [id number] Managed Care - [facility] P [id number] S [id number] Medicaid S UNAVAILABLE S UNAVAILA BLE MEDICARE COMPLETE [id number] SP [id number] MEDICARE COMPLETE-[facility] O [id number] S [id number] [facility] MCDO [id number] SP [id number] ANSI-Medicaid [id number] ANSI-Medicaid [id number] ANSI-Medicare Part B [id number] ANSI-Medicaid [id number] ANSI-Medicare Part B [id number] ANSI-Medicaid [id number] ANSI-Medicaid [id number] ANSI-Medicaid [id number] Cancer Services Program Commercial [id number] Self [id number] [facility] Health Maintenance Organization (HMO) [id number] Self [id number] [facility] O [id number] S [id number] Cancer Services Program Commercial [id number] Self [id number] [facility] Health Maintenance Organization (HMO) [id number] Self [id number] ANSI-Medicaid [id number] ANSI-Medicaid [id number] ANSI-Medicaid [id number] ANSI-Medicaid [id number] ANSI-Medicaid [id number] ANSI-Medicaid [id number] ANSI-Medicaid [id number] ANSI-Medicaid [id number] ANSI-Medicaid [id number] ANSI-Medicaid [id number] ANSI-Medicaid [id number] ANSI-Medicaid [id number] [facility] COMMUNITY PLAN [facility] [id number] SP [id number] ANSI-Medicaid [id number] ANSI-Medicaid [id number] Ghi/Emblem HLTH (pr) Medigap Part B [id number] Self [id number] [employer] Medigap Part B [id number] Self [id number] [facility] Community Plan Commercial [id number] Self [id number] ANSI-Medicaid [id number] ANSI-Medicaid [id number] [facility] [id number] ANSI-Medicaid [id number] ANSI-Medicaid [id number] Ghi/Emblem HLTH (pr) Medigap Part B [id number] Self [id number] Ghi/Emblem HLTH (pr) Medigap Part B [id number] Self [id number] Ghi/Emblem HLTH (pr) Medigap Part B [id number] Self [id number] Ghi/Emblem HLTH (pr) Medigap Part B [id number] Self [id number] G[facility]/Emblem HLTH (pr) Medigap Part B [id number] Self [id number] [facility] Other 0 Self 0 [facility] COMMUNITY PLAN [id number] SP [id number] [facility] COMMUNITY PLAN XIX [id number] 18 [id number] [facility] [id number] SP [id number] [employer] Medigap Part B Self Ghi/Emblem HLTH (pr) Medigap Part B Self [facility] Community Plan Commercial Self MEDICAID [id number] SP [id number] Medicaid [place] Medigap Part B Self [facility] Community Plan Commercial Self MEDICAID M [id number] S [id number] Medicaid Dental S [id number] S [id number] Managed Care [facility] P [id number] S [id number] [facility] COMMUNITY PLAN MCDO [id number] SP [id number] [facility] [place] Health Maintenance Organization (HMO) Self HMO BLUE [id number] SP [id number] HMO BLUE [id number] SP [id number] [employer] [id number] SP [id number] K K INSURANCE [id number] SP [id number] [facility] [id number] SP [id number] [employer]URANCE [id number] SP [id number] [facility] PLUS [id number] SP [id number] Medicaid Dental P [id number] S [id number] WELLNESS CONNECTION [id number] SP [id number] [employer] PPO 302/307 [id number] SP [id number] [facility] [id number] SP [id number] [facility] [id number] SP [id number] Problems, Conditions, and Diagnoses Code Display Name Description Problem Type Effective Dates Data Source(s) M79.10 Myalgia, unspecified site Myalgia, unspecified s ite (M79.10) 09/29/2020 [id number] 09/29/2020 10:35:02 AM EST CHARTMAKER ([facility]) R05 Cough Cough (R05) 09/29/2020 [id number] 09/29/2020 10: 35:02 AM EST CHARTMAKER ([facility]) Z03.818 Encounter for observation fo r suspected exposure to other biological agents ruled out Encounter for observation for suspected exposure to other biological agents ruled out (Z03.818) 09/29/2020 [id number] 2019 10:35:02 AM EST CHARTMAKER ([facility]) Surgeries/Procedures Procedure Description Date Indications Data Source(s) INFECTIOUS AGENT ANTIGEN DETECTION 09/29/2020 09/29/20 20 12:00:00 AM EST CHARTMAKER ([facility]) SVC PRV OFFICE REG SCHEDD EVN WKEND/HOLIDAY HRS 2019 12:00:00 AM EST CHARTMAKER ([facility]) Immunization: Boostrix 0.5mL IM (TDAP) 08/27/2020 12:0 0:00 AM EST eCW1 ([facility]) Immunization: Flublok Quadrivalent (18 years & older) 0.5mL IM (Influenza) 08/27/2020 12:00:00 AM EST eCW1 ([facility]) Pneumococcal 0.5mL (Prevnar 13) 12/15/2019 12:00:00 AM EST eCW1 ([facility]) Office Visit, Est Pt., Level 2 FC 12/15/2019 12:00:00 AM EST eCW1 ([facility]) RIV4 VACC RECOMBINANT DNA IM 12/15/2019 12:00:00 AM ES T eCW1 ([facility]) Administration of influenza virus vaccine 12/15/2019 1 2:00:00 AM EST eCW1 (Formerly [facility]) IMMUNIZATION ADMIN 12/15/2019 12:00:00 AM EST eCW1 (Formerly [facility]) Office Visit, Est Pt., Level 3 PC 12/15/2019 12:00:00 AM EST eCW1 (Formerly [facility]) Results ID Date Data Source [id number] 09/29/2020 11:10:00 AM EST [facility] Name Value Range Interpretation Code Description Data Jen rce(s) Supporting Document(s) SARS-CoV-2 by POLA [facility] This lab was ordered by [facility] and reported by [facility]. ID Date Data Source [id number] 09/29/2020 12:00:00 AM EST CHARTMAKER ([facility]) Name Value Range Interpretation Code Description Data Jen rce(s) Supporting Document(s) SARS COV 2 BY PCR DETECTED SARS COV 2 BY PCR: DETECTED 09/29/2020 CHARTMAKER ([facility]) ID Date Data Source [id number] 09/29/2020 12:00:00 AM EST CHARTMAKER ([facility]) Name Value Range Interpretation Code Description Data Jen rce(s) Supporting Document(s) SARS COV2 SOURCE NASOPHARYNGEAL SARS COV2 SOURC E: NASOPHARYNGEAL 09/29/2020 CHARTMAKER ([facility]) ID Date Data Source [id number] 09/29/2020 12:00:00 AM EST [facility] Name Value Range Interpretation Code Description Data Jen rce(s) Supporting Document(s) SARS-CoV2 Rapid Antigen [facility] This lab was ordered by [facility] and reported by [facility]. ID Date Data Source WOUND CULTURE 08/29/2020 10:19:07 AM EST eCW1 ([facility]) Name Value Range Interpretation Code Description Data Jen rce(s) Supporting Document(s) FULL REPORT IN LAB NOTES (eCW and [facility]). WOUND CULTURE eCW1 (Formerly [facility]) Procedure Social History Code Duration Value Status Description Data Source(s ) Smoking 08/27/2020 12:00:00 AM EST Former Smoker completed Former Smoker eCW1 (Formerly [facility]) Smoking 08/27/2020 12:00:00 AM EST Former Smoker completed Former Smoker eCW1 (Formerly [facility]) Smoking 08/27/2020 12:00:00 AM EST Former Smoker completed Former Smoker eCW1 (Formerly [facility]) Smoking 08/27/2020 12:00:00 AM EST Former Smoker completed Former Smoker eCW1 (Formerly [facility]) Smoking 08/27/2020 12:00:00 AM EST Former Smoker completed Former Smoker eCW1 (Formerly [facility]) Vital Signs ID Date Data Source UNK Name Value Range Interpretation Code Description Data Source(s) Inhaled oxygen concentration 21 % 21 % CHARTMAKER ([facility]) Oxygen saturation in Arterial blood by Pulse oximetry 97 % 97 % CHARTMAKER ([facility]) Heart rate 85 /min 85 /min [facility] ( [facility]) Body temperature 97.9 [degF] 97.9 [degF] CHARTM JAQUELINE ([facility]) Diastolic blood pressure 100 mm[Hg] 100 mm[Hg] eCW1 ([facility]) Systolic blood pressure 170 mm[Hg] 170 mm[Hg] e CW1 ([facility]ly [facility]) Body temperature 97 [degF] 97 [degF] eCW1 ([facility]) Respiratory rate 18 /min 18 /min eCW1 ([facility]) Heart rate 79 /min 79 /min eCW1 ([facility]ly [facility]) Body mass index (BMI) [Ratio] 35.87 kg/m2 35.87 kg/m2 eCW1 ([facility]ly [facility]) Body height 64 [in_i] 64 [in_i] eCW1 ([facility]) Body weight 209 [lb_av] 209 [lb_av] eCW1 ([facility]) Diastolic blood pressure 60 mm[Hg] 60 mm[Hg] eCW1 ([facility]ly [facility]) Systolic blood pressure 120 mm[Hg] 120 mm[Hg] e CW1 ([facility]ly [facility]) Body temperature 97 [degF] 97 [degF] eCW1 ([facility]) Respiratory rate 20 /min 20 /min eCW1 ([facility]) Heart rate 70 /min 70 /min eCW1 ([facility]ly [facility]) Body mass index (BMI) [Ratio] 36.04 kg/m2 36.04 kg/m2 eCW1 ([facility]ly [facility]) Body height 64 [in_us] 64 [in_us] eCW1 ([facility]) Body weight Measured 210 [lb_av] 210 [lb_av] eC W1 ([facility]ly [facility]) Body mass index (BMI) [Ratio] 35.2 kg/m2 35.2 k g/m2 MEDENT ([facility]) Body height 64 [in_i] 64 [in_i] MEDENT ([facility], [facility]) 5'4" Body weight 205.00 [lb_av] 205.00 [lb_av] MEDEN T ([facility], [facility]) Body temperature 98.4 [degF] 98.4 [degF] MEDENT ([facility], [facility]) Oxygen saturation in Arterial blood by Pulse oximetry 97 % 97 % [facility] ([facility], [facility]) Respiratory rate 16 /min 16 /min [facility] ( [facility], [facility]) Heart rate 63 /min 63 /min [facility] ([facility], [facility]) Diastolic blood pressure 93 mm[Hg] 93 mm[Hg] [facility] ([facility], [facility]) Systolic blood pressure 156 mm[Hg] 156 mm[Hg] M EDENT ([facility], [facility]) Patient Treatment Plan of Care Planned Activity Planned Date Details Description Data Source (s) Sulfamethoxazole 800 MG / Trimethoprim 160 MG Oral Tab let [Bactrim] 08/27/2020 12:00:00 AM EST eCW1 ([facility]) Sulfamethoxazole 800 MG / Trimethoprim 160 MG Oral Tab let [Bactrim] 08/27/2020 12:00:00 AM EST eCW1 ([facility]) Sulfamethoxazole 800 MG / Trimethoprim 160 MG Oral Tab let [Bactrim] 08/27/2020 12:00:00 AM EST eCW1 ([facility]) Sulfamethoxazole 800 MG / Trimethoprim 160 MG Oral Tab let [Bactrim] 08/27/2020 12:00:00 AM EST eCW1 ([facility]) Sulfamethoxazole 800 MG / Trimethoprim 160 MG Oral Tab let [Bactrim] 08/27/2020 12:00:00 AM EST eCW1 ([facility])
--- OUTSIDE RECORDS SUMMARY | 2020-12-18 17:27 | CCD ---
Author Author [facility] Organization [facility] Address Unknown Phone Unavailable Care Team Providers Care Sequins Slinger Name Role Phone Potter, M Alondra MATH AND PHYSICS INSTRUCTOR Unavailable Unavailable Potter, M Alondra MATH AND PHYSICS INSTRUCTOR Unavailable Unavailable Potter, M Alondra MATH AND PHYSICS INSTRUCTOR Unavailable Unavailable Potter, M Alondra MATH AND PHYSICS INSTRUCTOR Unavailable Unavailable Potter, M Alondra MATH AND PHYSICS INSTRUCTOR Unavailable Unavailable Potter, M Alondra MATH AND PHYSICS INSTRUCTOR Unavailable Unavailable Potter, M Alondra MATH AND PHYSICS INSTRUCTOR Unavailable Unavailable Potter, M Alondra MATH AND PHYSICS INSTRUCTOR Unavailable Unavailable Potter, M Alondra MATH AND PHYSICS INSTRUCTOR Unavailable Unavailable Potter, M Alondra MATH AND PHYSICS INSTRUCTOR Unavailable Unavailable Potter, M Alondra MATH AND PHYSICS INSTRUCTOR Unavailable Unavailable Potter, M Alondra MATH AND PHYSICS INSTRUCTOR Unavailable Unavailable Potter, M Alondra MATH AND PHYSICS INSTRUCTOR Unavailable Unavailable Potter, M Alondra MATH AND PHYSICS INSTRUCTOR Unavailable Unavailable Potter, M Alondra MATH AND PHYSICS INSTRUCTOR Unavailable Unavailable Potter, M Alondra MATH AND PHYSICS INSTRUCTOR Unavailable Unavailable Potter, M Alondra MATH AND PHYSICS INSTRUCTOR Unavailable Unavailable Potter, M Alondra MATH AND PHYSICS INSTRUCTOR Unavailable Unavailable Potter, M Alondra MATH AND PHYSICS INSTRUCTOR Unavailable Unavailable Potter, M Alondra MATH AND PHYSICS INSTRUCTOR Unavailable Unavailable Potter, M Alondra MATH AND PHYSICS INSTRUCTOR Unavailable Unavailable Potter, M Alondra MATH AND PHYSICS INSTRUCTOR Unavailable Unavailable Potter, M Alondra MATH AND PHYSICS INSTRUCTOR Unavailable Unavailable Potter, M Alondra MATH AND PHYSICS INSTRUCTOR Unavailable Unavailable Potter, M Alondra MATH AND PHYSICS INSTRUCTOR Unavailable Unavailable Potter, M Alondra MATH AND PHYSICS INSTRUCTOR Unavailable Unavailable Potter, M Alondra MATH AND PHYSICS INSTRUCTOR Unavailable Unavailable Potter, M Alondra MATH AND PHYSICS INSTRUCTOR Unavailable Unavailable Potter, M Alondra MATH AND PHYSICS INSTRUCTOR Unavailable Unavailable Potter, M Alondra MATH AND PHYSICS INSTRUCTOR Unavailable Unavailable Potter, M Alondra MATH AND PHYSICS INSTRUCTOR Unavailable Unavailable Potter, M Alondra MATH AND PHYSICS INSTRUCTOR Unavailable Unavailable Potter, M Alondra MATH AND PHYSICS INSTRUCTOR Unavailable Unavailable Potter, M Alondra MATH AND PHYSICS INSTRUCTOR Unavailable Unavailable Potter, M Alondra MATH AND PHYSICS INSTRUCTOR Unavailable Unavailable Potter, M Alondra MATH AND PHYSICS INSTRUCTOR Unavailable Unavailable Potter, M Alondra MATH AND PHYSICS INSTRUCTOR Unavailable Unavailable Potter, M Alondra MATH AND PHYSICS INSTRUCTOR Unavailable Unavailable Potter, M Alondra MATH AND PHYSICS INSTRUCTOR Unavailable Unavailable Potter, M Alondra MATH AND PHYSICS INSTRUCTOR Unavailable Unavailable Potter, M Alondra MATH AND PHYSICS INSTRUCTOR Unavailable Unavailable Potter, M Alondra MATH AND PHYSICS INSTRUCTOR Unavailable Unavailable Potter, M Alondra MATH AND PHYSICS INSTRUCTOR Unavailable Unavailable Potter, M Alondra MATH AND PHYSICS INSTRUCTOR Unavailable Unavailable Potter, M Alondra MATH AND PHYSICS INSTRUCTOR Unavailable Unavailable Potter, M Alondra MATH AND PHYSICS INSTRUCTOR Unavailable Unavailable Potter, M Alondra MATH AND PHYSICS INSTRUCTOR Unavailable Unavailable Potter, M Alondra MATH AND PHYSICS INSTRUCTOR Unavailable Unavailable Potter, M Alondra MATH AND PHYSICS INSTRUCTOR Unavailable Unavailable Potter, M Alondra MATH AND PHYSICS INSTRUCTOR Unavailable Unavailable Potter, M Alondra MATH AND PHYSICS INSTRUCTOR Unavailable Unavailable Potter, M Alondra MATH AND PHYSICS INSTRUCTOR Unavailable Unavailable Potter, M Alondra MATH AND PHYSICS INSTRUCTOR Unavailable Unavailable Potter, M Alondra MATH AND PHYSICS INSTRUCTOR Unavailable Unavailable Potter, M Alondra MATH AND PHYSICS INSTRUCTOR Unavailable Unavailable RING, K CORBIN PA Unavailable [...] is protected by Article 27-F of the [place] State Public Health law. If you continue you may have access to information: Regarding HIV / AIDS; Provided by facilities licensed or operated by the [facility] Office of Mental Health; or Provided by the [facility] Office for People With Developmental Disabilities. If such information is present, then the following [facility] mandated warning applies: This information has [...] law may result in a fine or usp sentence or both. A general authorization for the release of medical or other information is NOT sufficient authorization for further disc losure. Allergies and Adverse Reactions Type Description Substance Reaction Status Data Source(s ) cats cats cats dyspnea Active eCW1 ([facility]) dust dust dust cold symptoms Active eCW1 ([facility]) Family History Family Member Name Family Member Gender Family Member Status Date o f Status Description Data Source(s) Unknown Male Problem MEDENT ([facility], ) () Encounters Encounter Providers Location Date Indications Data Source(s ) Unknown [address] [place] [phone] 11/06/2020 12:00:00 AM EST eCW1 ([facility]) Unknown [address] [place] [phone] 11/04/2020 12:00:00 AM EST eCW1 ([facility]) Unknown [address] [place] [phone] 11/01/2020 12:00:00 AM EST eCW1 ([facility]) OutpatientOFFICE/OUTPATIENT VISIT, EST 09/29/2020 Attender: Becky Gutierrez NP 09/29/2020 10:35:02 AM EST CHARTMAKER ([facility]) Office Visit, Est Pt., Level 3 [address] [place] [address] 08/27/2020 12:00:00 AM EST eCW1 ([facility]) Unknown [address] [place] [phone] 08/26/2020 12:00:00 AM EST eCW1 ([facility]) Outpatient Attender: Tita Mancuso ANIBALLeandro CL[place] 07/16/2020 12:02:[address] [facility] Outpatient Attender: Tita Mancuso DDS [place] 03/24/2020 12:03:02 A M EDT [facility] [place] [address] [facility] [address] 02/07/2020 12:00:00 AM EDT eCW1 ([facility]) [facility] [place] [address] [facility] [address] 02/07/2020 12:00:00 AM EDT eCW1 ([facility]) [facility] [address] [facility] [address] 02/05/2020 12:00:00 AM EDT eCW1 ([facility]) [facility] [address] [place] [address], [place] [address] 01/18/2020 12:00:00 AM EDT eCW1 ([facility]) [facility] Res[facility] [address] [place] [phone] 12/15/2019 12:00:00 AM EST eCW1 ([facility]) Outpatient Attender: [facility] 11/13/2019 04:02:[address] [facility] Outpatient Attender: CORBIN Hung 10/21/2019 12:25:00 PM EST MEDENT ([facility] Immunizations Vaccine Date Status Description Data Source(s) Tdap 08/27/2020 10:00:00 AM EST completed e CW1 ([facility]) Tdap 08/27/2020 10:00:00 AM EST completed e CW1 ([facility]) Tdap 08/27/2020 10:00:00 AM EST completed e CW1 ([facility]) Tdap 08/27/2020 10:00:00 AM EST completed e CW1 ([facility]) Tdap 08/27/2020 10:00:00 AM EST completed e CW1 ([facility]) influenza, recombinant, quadrIvalent,injectable, prese rvative free 08/27/2020 09:59:00 AM EST completed eCW1 ([facility]) influenza, recombinant, quadrIvalent,injectable, prese rvative free 08/27/2020 09:59:00 AM EST completed eCW1 ([facility]) influenza, recombinant, quadrIvalent,injectable, prese rvative free 08/27/2020 09:59:00 AM EST completed eCW1 ([facility]) influenza, recombinant, quadrIvalent,injectable, prese rvative free 08/27/2020 09:59:00 AM EST completed eCW1 ([facility]) influenza, recombinant, quadrIvalent,injectable, prese rvative free 08/27/2020 09:59:00 AM EST completed eCW1 ([facility]) influenza, recombinant, quadrIvalent,injectable, prese rvative free 12/15/2019 03:41:00 PM EST completed eCW1 ([facility]) influenza, recombinant, quadrIvalent,injectable, prese rvative free 12/15/2019 03:41:00 PM EST completed eCW1 ([facility]) influenza, recombinant, quadrIvalent,injectable, prese rvative free 12/15/2019 03:41:00 PM EST completed eCW1 ([facility]) influenza, recombinant, quadrIvalent,injectable, prese rvative free 12/15/2019 03:41:00 PM EST completed eCW1 ([facility]) influenza, recombinant, quadrIvalent,injectable, prese rvative free 12/15/2019 03:41:00 PM EST completed eCW1 ([facility]) influenza, recombinant, quadrIvalent,injectable, prese rvative free 12/15/2019 03:41:00 PM EST completed eCW1 (Critical access hospital) Pneumococcal conjugate PCV 13 12/15/2019 03:37:00 PM EST completed eCW1 ([facility]) Pneumococcal conjugate PCV 13 12/15/2019 03:37:00 PM EST completed eCW1 ([facility]) Pneumococcal conjugate PCV 13 12/15/2019 03:37:00 PM EST completed eCW1 ([facility]) Pneumococcal conjugate PCV 13 12/15/2019 03:37:00 PM EST completed eCW1 ([facility]) Pneumococcal conjugate PCV 13 12/15/2019 03:37:00 PM EST completed eCW1 ([facility]) Pneumococcal conjugate PCV 13 12/15/2019 03:37:00 PM EST completed eCW1 ([facility]) Medications Medication Brand Name Start Date Product Form Dose Route Admi nistrative Instructions Pharmacy Instructions Status Indications Reaction Description Data Source(s) 20 mg 11/05/2020 12:00:00 AM EST capsule 60 TAKE TWO CAPSULES BY MOUTH EVERY DAY TAKE TWO CAPSULES BY MOUTH EVERY DAY SOLD: 12/05/2020 [facility] 20 mg 11/05/2020 12:00:00 AM EST capsule 60 TAKE TWO CAPSULES BY MOUTH EVERY DAY TAKE TWO CAPSULES BY MOUTH EVERY DAY SOLD: 11/06/2020 [facility] Sulfamethoxazole 800 MG / Trimethoprim 1 60 MG Oral Tablet [Bactrim] Bactrim DS 800-160 MG Bactrim DS 800-160 MG 08/27/2020 12:00:00 AM EST 1.0 {table t} active Bactrim DS 800-160 MG eCW1 ( [facility]) Sulfamethoxazole 800 MG / Trimethoprim 1 60 MG Oral Tablet [Bactrim] Bactrim DS 800-160 MG Bactrim DS 800-160 MG 08/27/2020 12:00:00 AM EST 1.0 {table t} active Bactrim DS 800-160 MG eCW1 ( [facility]) Sulfamethoxazole 800 MG / Trimethoprim 1 60 MG Oral Tablet [Bactrim] Bactrim DS 800-160 MG Bactrim DS 800-160 MG 08/27/2020 12:00:00 AM EST 1.0 {table t} active Bactrim DS 800-160 MG eCW1 ( [facility]) Sulfamethoxazole 800 MG / Trimethoprim 1 60 MG Oral Tablet [Bactrim] Bactrim DS 800-160 MG Bactrim DS 800-160 MG 08/27/2020 12:00:00 AM EST 1.0 {table t} active Bactrim DS 800-160 MG eCW1 ( [facility]) Sulfamethoxazole 800 MG / Trimethoprim 1 60 MG Oral Tablet [Bactrim] Bactrim DS 800-160 MG Bactrim DS 800-160 MG 08/27/2020 12:00:00 AM EST 1.0 {table t} active Bactrim DS 800-160 MG eCW1 ( [facility]) Sulfamethoxazole 800 MG / Trimethoprim 160 MG [...] NEEDED FOR COUGH AND WHEEZING SOLD: 10/21/2019 [facility] Prednisone 20 MG Oral Tablet Prednisone 10/21/2019 12:00:00 AM EST ORAL active MEDENT ([facility], [facility]) 200 ACTUAT Albuterol 0.09 MG/ACTUAT Metered Dose Inhaler [Pr oAir] Proair HFA 10/21/2019 12:00:00 AM EST ORAL active MEDENT ([facility]) Doxycycline Monohydrate 100 MG Oral Capsule Doxycycline [facility] hydrate 10/21/2019 12:00:00 AM EST ORAL active M EDENT ([facility], [facility]) 20 mg 07/14/2019 12:00:00 AM EDT capsule 60 TAKE TWO CAPSULES BY MOUTH EVERY DAY TAKE TWO CAPSULES BY MOUTH EVERY DAY SOLD: 11/15/2019 [facility] Insurance Providers Payer name Policy type / Coverage type Policy ID Covered constitution party ID Covered constitution party's relationship to velazquez Policy Velazquez Plan Information MEDICARE COMPLETE [id number] SP [id number] [facility] COMMUNITY PLAN [facility] [id number] SP [id number] [id number] AUBREE [id number] ID IDENTIFICATION [id number] Other In surance [id number] [facility] [id number] Commercial Insuranc e [id number] Self Pay P [id number] S [id number] Managed Care - [facility] P [id number] S [id number] Medicaid S UNAVAILABLE S UNAVAILA BLE MEDICARE COMPLETE [id number] SP [id number] MEDICARE COMPLETE-[facility] O [id number] S [id number] [facility] [id number] SP [id number] ANSI-Medicaid [id number] ANSI-Medicaid [id number] ANSI-Medicare Part B [id number] ANSI-Medicaid [id number] ANSI-Medicare Part B [id number] ANSI-Medicaid [id number] ANSI-Medicaid [id number] ANSI-Medicaid [id number] Cancer Services Program Commercial [id number] Self [id number] [facility] Health Maintenance Organization (HMO) [id number] Self [id number] [facility] O [id number] S [id number] Cancer Services Program Commercial [id number] Self [id number] [facility] Health Maintenance Organization ([facility] [employer]) [id number] Self [id number] ANSI-Medicaid [id number] ANSI-Medicaid [id number] ANSI-Medicaid [id number] ANSI-Medicaid [id number] ANSI-Medicaid [id number] ANSI-Medicaid [id number] ANSI-Medicaid [id number] ANSI-Medicaid [id number] ANSI-Medicaid [id number] ANSI-Medicaid [id number] ANSI-Medicaid [id number] ANSI-Medicaid [id number] [facility] COMMUNITY [facility]AN [facility] [id number] ANSI-Medicaid [id number] ANSI-Medicaid [id number] Ghi/Emblem HLTH (pr) Medigap Part B [id number] Self [id number] [employer] Medigap Part B [id number] Self [id number] [facility] Community Plan [facility] [id number] [facility] [id number] ANSI-Medicaid [id number] ANSI-Medicaid [id number] ANSI-Medicaid [id number] ANSI-Medicaid [id number] Ghi/Emblem HLTH (pr) Medigap Part B [id number] Self [id number] Ghi/Emblem HLTH (pr) Medigap Part B [id number] Self [id number] Ghi/Emblem HLTH (pr) Medigap Part B [id number] Self [id number] Ghi/Emblem HLTH (pr) Medigap Part B [id number] Self [id number] Ghi/Emblem HLTH (pr) Medigap Part B [id number] Self [id number] [place] Other 0 Self 0 [facility] COMMUNITY PLAN [id number] SP [id number] [facility] COMMUNITY [facility]AN XIX [id number] [id number] [facility] [id number] SP [id number] [employer] Medigap Part B Self Ghi/Emblem HLTH (pr) Medigap Part B Self [facility] Community Plan Commercial Self MEDICAID [id number] SP [id number] Medicaid [place] Medigap Part B Self [facility] Community Plan Commercial Self MEDICAID M [id number] S [id number] Medicaid Dental S [id number] S [id number] Managed Care [employer] P [id number] S [id number] [facility] COMMUNITY [facility]AN MCDO [id number] SP [id number] [facility] Health Maintenance Organization (HMO) Self HMO BLUE [id number] SP [id number] HMO BLUE [id number] SP [id number] [employer] [id number] SP [id number] K K INSURANCE [id number] SP [id number] [id number] [facility] [id number] SP [id number] [employer] [id number] SP [id number] GHI FAMILY HLTH PLUS [id number] SP [id number] Medicaid Dental P [id number] S [id number] [employer] [id number] SP [id number] [employer] [place] PPO [id number] SP [id number] [facility] [id number] SP [id number] [facility] [id number] SP [id number] Problems, Conditions, and Diagnoses Code Display Name Description Problem Type Effective Dates Data Source(s) M79.10 Myalgia, unspecified site Myalgia, unspecified s ite (M79.10) 09/29/2020 [id number] 09/29/2020 10:35:02 AM EST CHARTMAKER ([facility]) R05 Cough Cough (R05) 09/29/2020 [id number] 09/29/2020 10: 35:02 AM EST CHARTMAKER ([facility]) Z03.818 Encounter for observation fo r suspected exposure to other biological agents ruled out Encounter for observation for suspected exposure to other biological agents ruled out (Z03.818) 09/29/2020 [id number] 2019 10:35:02 AM EST CHARTMAKER ([facility]) Surgeries/Procedures Procedure Description Date Indications Data Source(s) INFECTIOUS AGENT ANTIGEN DETECTION 09/29/2020 09/29/20 20 12:00:00 AM EST CHARTMAKER ([facility]) SVC PRV OFFICE REG SCHEDD EVN WKEND/HOLIDAY HRS 2019 12:00:00 AM EST CHARTMAKER ([facility]) Immunization: Boostrix 0.5mL IM (TDAP) 08/27/2020 12:0 0:00 AM EST eCW1 ([facility]) Immunization: Flublok Quadrivalent (18 years & older) 0.5mL IM (Influenza) 08/27/2020 12:00:00 AM EST eCW1 ([facility]) Pneumococcal 0.5mL (Prevnar 13) 12/15/2019 12:00:00 AM EST eCW1 ([facility]) Office Visit, Est Pt., Level 2 FC 12/15/2019 12:00:00 AM EST eCW1 ([facility]) RIV4 VACC RECOMBINANT DNA IM 12/15/2019 12:00:00 AM ES T eCW1 ([facility]) Administration of influenza virus vaccine 12/15/2019 1 2:00:00 AM EST eCW1 ([facility]) IMMUNIZATION ADMIN 12/15/2019 12:00:00 AM EST eCW1 ([facility]) Office Visit, Est Pt., Level 3 PC 12/15/2019 12:00:00 AM EST eCW1 ([facility]) Results ID Date Data Source [id number] 09/29/2020 11:10:00 AM EST [place] Name Value Range Interpretation Code Description Data Jen rce(s) Supporting Document(s) SARS-CoV-2 by POLA [place] This lab was ordered by [facility] and reported by [facility] Lastline. ID Date Data Source [id number] 09/29/2020 12:00:00 AM EST CHARTMAKER ([facility]) Name Value Range Interpretation Code Description Data Jen rce(s) Supporting Document(s) SARS COV 2 BY PCR DETECTED SARS COV 2 BY PCR: DETECTED 09/29/2020 CHARTMAKER ([facility]) ID Date Data Source [id number] 09/29/2020 12:00:00 AM EST CHARTMAKER ([facility] Name Value Range Interpretation Code Description Data Jen rce(s) Supporting Document(s) SARS COV2 SOURCE NASOPHARYNGEAL SARS COV2 SOURC E: NASOPHARYNGEAL 09/29/2020 CHARTMAKER ([facility]) ID Date Data Source [id number] 09/29/2020 12:00:00 AM EST [place] Name Value Range Interpretation Code Description Data Jen rce(s) Supporting Document(s) SARS-CoV2 Rapid Antigen [facility] This lab was ordered by [facility] C are and reported by [facility]. ID Date Data Source WOUND CULTURE 08/29/2020 10:19:07 AM EST eCW1 ([facility]) Name Value Range Interpretation Code Description Data Jen rce(s) Supporting Document(s) FULL REPORT IN LAB NOTES (eCW and [facility]). WOUND CULTURE eCW1 ([facility]) Procedure Social History Code Duration Value Status Description Data Source(s ) Smoking 08/27/2020 12:00:00 AM EST Former Smoker completed Former Smoker eCW1 ([facility]) Smoking 08/27/2020 12:00:00 AM EST Former Smoker completed Former Smoker eCW1 ([facility]) Smoking 08/27/2020 12:00:00 AM EST Former Smoker completed Former Smoker eCW1 ([facility]) Smoking 08/27/2020 12:00:00 AM EST Former Smoker completed Former Smoker eCW1 ([facility]) Smoking 08/27/2020 12:00:00 AM EST Former Smoker completed Former Smoker eCW1 ([facility]) Vital Signs ID Date Data Source UNK Name Value Range Interpretation Code Description Data Source(s) Inhaled oxygen concentration 21 % 21 % CHARTMAKER ([facility]) Oxygen saturation in Arterial blood by Pulse oximetry 97 % 97 % CHARTMAKER ([facility]) Heart rate 85 /min 85 /min [facility] ( [facility] Body temperature 97.9 [degF] 97.9 [degF] CHARTM JAQUELINE ([facility]) Diastolic blood pressure 100 mm[Hg] 100 mm[Hg] eCW1 ([facility]) Systolic blood pressure 170 mm[Hg] 170 mm[Hg] e CW1 ([facility]) Body temperature 97 [degF] 97 [degF] eCW1 ([facility]) Respiratory rate 18 /min 18 /min eCW1 ([facility]) Heart rate 79 /min 79 /min eCW1 ([facility]) Body mass index (BMI) [Ratio] 35.87 kg/m2 35.87 kg/m2 eCW1 ([facility]) Body height 64 [in_i] 64 [in_i] eCW1 ([facility]) Body weight 209 [lb_av] 209 [lb_av] eCW1 ([facility]) Diastolic blood pressure 60 mm[Hg] 60 mm[Hg] eCW1 ([facility]) Systolic blood pressure 120 mm[Hg] 120 mm[Hg] e CW1 ([facility]) Body temperature 97 [degF] 97 [degF] eCW1 ([facility]) Respiratory rate 20 /min 20 /min eCW1 ([facility]) Heart rate 70 /min 70 /min eCW1 ([facility]) Body mass index (BMI) [Ratio] 36.04 kg/m2 36.04 kg/m2 W1 ([facility]) Body height 64 [in_us] 64 [in_us] eCW1 ([facility]) Body weight Measured 210 [lb_av] 210 [lb_av] eC W1 ([facility]) Body mass index (BMI) [Ratio] 35.2 kg/m2 35.2 k g/m2 MEDENT ([facility]) Body height 64 [in_i] 64 [in_i] MEDENT ([facility]) 5'4" Body weight 205.00 [lb_av] 205.00 [lb_av] MEDEN T ([facility], [facility]) Body temperature 98.4 [degF] 98.4 [degF] MEDENT ([facility], [facility]) Oxygen saturation in Arterial blood by Pulse oximetry 97 % 97 % [facility]) Respiratory rate 16 /min 16 /min [facility] ( [facility]) Heart rate 63 /min 63 /min [facility] ([facility]) Diastolic blood pressure 93 mm[Hg] 93 mm[Hg] [facility] [place]) Systolic blood pressure 156 mm[Hg] 156 mm[Hg] M [facility] ([facility], [facility] [place]) Patient Treatment Plan of Care Planned Activity Planned Date Details Description Data Source (s) Sulfamethoxazole 800 MG / Trimethoprim 160 MG Oral Tab let [Bactrim] 08/27/2020 12:00:00 AM EST eCW1 (Critical access hospital) Sulfamethoxazole 800 MG / Trimethoprim 160 MG Oral Tab let [Bactrim] 08/27/2020 12:00:00 AM EST eCW1 (Critical access hospital) Sulfamethoxazole 800 MG / Trimethoprim 160 MG Oral Tab let [Bactrim] 08/27/2020 12:00:00 AM EST eCW1 (Critical access hospital) Sulfamethoxazole 800 MG / Trimethoprim 160 MG Oral Tab let [Bactrim] 08/27/2020 12:00:00 AM EST eCW1 (Critical access hospital) Sulfamethoxazole 800 MG / Trimethoprim 160 MG Oral Tab let [Bactrim] 08/27/2020 12:00:00 AM EST eCW1 (Critical access hospital)
[2020-12-18 17:36] LABS: BASO % 0.5 % (0.0-1.0); EOS # 0.1 10^3/uL (0.0-0.5); EOS % 1.1 % (0.0-3.0); HEMATOCRIT 42.4 % (36.0-47.0); HEMOGLOBIN 13.9 g/dl (12.0-15.5); LYMPH # 1.9 10^3/uL (1.5-5.0); LYMPH % 23.6 % (24.0-44.0); MEAN CORPUSCULAR HEMOGLOBIN 34.2 pg (27.0-33.0); MEAN CORPUSCULAR HGB CONC 32.8 g/dl (32.0-36.5); MEAN CORPUSCULAR VOLUME 104.2 fl (80.0-96.0); MONO # 0.8 10^3/uL (0.0-0.8); MONO % 10.3 % (2.0-8.0); NEUTROPHILS # 5.2 10^3/uL (1.5-8.5); NEUTROPHILS % 64.3 % (36.0-66.0); PLATELET COUNT, AUTOMATED 267 10^3/uL (150-450); RED BLOOD COUNT 4.07 10^6/uL (4.00-5.40); WHITE BLOOD COUNT 8.1 10^3/uL (4.0-10.0)
[2020-12-18 17:55] LABS: ALBUMIN 3.9 GM/DL (3.2-5.2); ALT/SGPT 46 U/L (12-78); BILIRUBIN,DIRECT < 0.1 MG/DL (0.0-0.2); BILIRUBIN,TOTAL 0.3 MG/DL (0.2-1.0); BLOOD UREA NITROGEN 13 MG/DL (7-18); CALCIUM LEVEL 9.1 MG/DL (8.8-10.2); CARBON DIOXIDE LEVEL 26 MEQ/L (21-32); CHLORIDE LEVEL 108 MEQ/L (98-107); GLOMERULAR FILTRATION RATE > 60.0 (>45); GLUCOSE, FASTING 86 MG/DL (70-100); LIPASE 145 U/L (73-393); POTASSIUM SERUM 3.9 MEQ/L (3.5-5.1); SODIUM LEVEL 141 MEQ/L (136-145); TOTAL PROTEIN 7.3 GM/DL (6.4-8.2)
--- NOTE | 2020-12-18 18:32 | REPVR ---
PROCEDURE INFORMATION: Exam: CT Abdomen And Pelvis Without Contrast Exam date and time: 12/18/2020 5:49 PM Age: 65 years old Clinical indication: Abdominal pain; Generalized; Additional info: Abd wall hernia TECHNIQUE: Imaging protocol: Computed tomography of the abdomen and pelvis without contrast. Radiation optimization: All CT scans at this facility use at least one of these dose optimization techniques: automated exposure control; mA and/or kV adjustment per patient size (includes targeted exams where dose is matched to clinical indication); or iterative reconstruction. COMPARISON: No relevant prior studies available. FINDINGS: Mediastinal space: Small sliding hiatal hernia. Liver: The liver is low in density. Exophytic/pericapsular lesion projecting off the lateral segment left lobe of the liver into the gastrohepatic ligament and measuring 2.6 by 2.4 cm (36 H). 9 mm low-density lesion segment 6 (9 H). 1.5 cm low-density lesion lateral segment left lobe (2 H). Subcapsular low-density lesion medial segment left lobe 5 H). Gallbladder and bile ducts: Normal. No calcified stones. No ductal dilation. Pancreas: Normal. No ductal dilation. Spleen: Normal. No splenomegaly. Adrenal glands: Normal. No mass. Kidneys and ureters: Parapelvic cyst versus focally dilated calyx lower pole left kidney. Stomach and bowel: No signs of obstruction.. No obstruction. No mucosal thickening. Scattered colonic diverticula. Appendix: No evidence of appendicitis. Intraperitoneal space: Hazy density noted within the mesenteric fat. Vasculature: Unremarkable. No abdominal aortic aneurysm. Lymph nodes: Unremarkable. No enlarged lymph nodes. Urinary bladder: Unremarkable as visualized. Reproductive: Unremarkable as visualized. Bones/joints: Unremarkable. No acute fracture. Soft tissues: Right para umbilical hernia containing fat with the hernia sac measuring 8.2 cm in diameter. Mild stranding noted of the fat within the hernia sac. 1 cm coarse calcification adjacent to origin of the right external iliac vessels could represent calcified lymph node. IMPRESSION: 1. Right para umbilical hernia containing fat. Stranding of the fat within the hernia sac suggests the possibility early strangulation. 2. Exophytic/pericapsular liver mass extending from the left lateral margin of the lateral segment of the left lobe of liver. MRI might be considered. 3. Multiple liver cysts. 4. Hepatic steatosis. 5. Small sliding hiatal hernia. 6. Shirin mesentery/mesenteric panniculitis. This does not appear to communicate with the fat contained in the paraumbilical hernia COMMENTS: Consistent with the [employer]'s Incidental Findings Committee white paper (J Am Dmitry Radiol 2018): Any incidental renal lesion less than 1 cm or classified as too small to characterize, or any incidental cystic renal lesion characterized as simple-appearing, is likely benign. No follow-up imaging is recommended for these lesions per consensus recommendations based on imaging criteria. Electronically signed by: Hollie Barrientos On 12/18/2020 18:32:02 PM
[2020-12-18 19:48] VITALS: BP 134/86
--- NOTE | 2020-12-19 11:43 | ED PDOC ---
Post-Departure Follow-Up ct abd/p faxed to dr eden and dr kimbrough for fu Nisha Mcgregor MD Dec 19, 2020 11:43
== END 2020-12-18 19:58 | disposition home or self-care (01) ==
LOC: M ED 14:36
DX: K44.9 Diaphragmatic hernia without obstruction or gangrene (principal); K76.9 Liver disease, unspecified; F10.10 Alcohol abuse, uncomplicated; J30.89 Other allergic rhinitis; Z79.899 Other long term (current) drug therapy

== ENCOUNTER → 2021-01-16 | Outpatient (CLI) | payer MEDICAID, MEDICARE ==
[~2021-01-16] MED LIST changes: +PROHANCE 279.3MG/ML 15ML VIAL As Ordered ONE; +PROHANCE 279.3MG/ML 5ML VIAL As Ordered ONE
--- NOTE | 2021-01-17 10:34 | REP ---
INDICATION: LIVER DISEASE, UNSPECIFIED. COMPARISON: CT 12/18/2020. TECHNIQUE: Multiple sequences obtained in the axial and coronal planes prior to and following the intravenous administration of 18 mL ProHance. FINDINGS: There is a small hiatal hernia. At the right dome of the liver there is a lobulated hyperintense nodule on T2 weighted images which demonstrates enhancement characteristics consistent with a benign hemangioma. This measures approximately 1.6 cm in diameter. In the lateral segment of the left lobe of the liver at the site of the lesion seen on the recent CT scan, that nodule is hyperintense and demonstrates enhancement characteristics consistent with a hemangioma, this measures approximately 3 cm in diameter. Two benign nonenhancing cysts are seen in the left lobe of the liver, the larger of the 2 measures 1.9 cm in diameter. There is an 8 mm hemangioma in the anterior segment of the right lobe of the liver. Two subcentimeter cysts are seen more inferiorly in the right lobe. The spleen, adrenals, pancreas and visualized kidneys are unremarkable. There is no adenopathy or free fluid in the abdomen. IMPRESSION: Benign cysts and hemangiomas are seen in the liver as discussed in detail above. <Electronically signed by Jordin De Leon > 01/17/21 [id number]
== END ==
LOC: M RAD 16:51
PROVIDERS: ATTEND Student in an Organized Health Care Education/Training Program
DX: L72.0 Epidermal cyst (principal); D18.09 Hemangioma of other sites; K76.9 Liver disease, unspecified
CPT/HCPCS: 74183; A9576

== ENCOUNTER 2021-10-22 10:35 | Emergency (ER) | payer MEDICARE ==
[~2021-10-22] VITALS: Ht 162.6 cm; Wt 87.3 kg
[~2021-10-22 10:35] MED LIST changes: -PROHANCE 279.3MG/ML 15ML VIAL As Ordered ONE; -PROHANCE 279.3MG/ML 5ML VIAL As Ordered ONE
[2021-10-22] MEDS ORDERED: fentaNYL 100 MCG/2 ML INJECTION (J3010) IV ONE (11:00)
[2021-10-22 11:42] LABS: BASO # 0.1 10^3/uL (0.0-0.2); BASO % 0.4 % (0.0-1.0); EOS # 0.1 10^3/uL (0.0-0.5); EOS % 0.4 % (0.0-3.0); HEMATOCRIT 42.3 % (36.0-47.0); HEMOGLOBIN 13.8 g/dl (12.0-15.5); LYMPH # 0.8 10^3/uL (1.5-5.0); LYMPH % 6.8 % (24.0-44.0); MEAN CORPUSCULAR HEMOGLOBIN 32.5 pg (27.0-33.0); MEAN CORPUSCULAR HGB CONC 32.6 g/dl (32.0-36.5); MEAN CORPUSCULAR VOLUME 99.5 fl (80.0-96.0); MONO # 0.5 10^3/uL (0.0-0.8); MONO % 4.1 % (2.0-8.0); NEUTROPHILS # 9.8 10^3/uL (1.5-8.5); NEUTROPHILS % 87.8 % (36.0-66.0); PLATELET COUNT, AUTOMATED 264 10^3/uL (150-450); RED BLOOD COUNT 4.25 10^6/uL (4.00-5.40); WHITE BLOOD COUNT 11.2 10^3/uL (4.0-10.0)
[2021-10-22 12:09] LABS: ALBUMIN 3.6 GM/DL (3.2-5.2); ALT/SGPT 25 U/L (12-78); BILIRUBIN,DIRECT 0.1 MG/DL (0.0-0.2); BILIRUBIN,TOTAL 0.5 MG/DL (0.2-1.0); BLOOD UREA NITROGEN 12 MG/DL (7-18); CALCIUM LEVEL 9.1 MG/DL (8.8-10.2); CARBON DIOXIDE LEVEL 23 MEQ/L (21-32); CHLORIDE LEVEL 111 MEQ/L (98-107); CREATININE FOR GFR 0.82 MG/DL (0.55-1.30); GLOMERULAR FILTRATION RATE > 60.0 (>45); GLUCOSE, FASTING 114 MG/DL (70-100); POTASSIUM SERUM 4.2 MEQ/L (3.5-5.1); SODIUM LEVEL 143 MEQ/L (136-145); TOTAL PROTEIN 7.1 GM/DL (6.4-8.2)
[2021-10-22] MEDS ORDERED: NS 2,620 ML in IV 1 EA IV ONE (12:15)
[2021-10-22] MEDS ORDERED: ISOVUE-370 76% 100ML VIAL As Ordered ONE (12:15)
[2021-10-22] MEDS ORDERED: CEFEPIME HCL 2 GM in D5W MINI-BAG PLUS 50 ML IV ONE (12:15)
[2021-10-22 12:22] LABS: RSV AMPLIFICATION NEGATIVE (NEGATIVE)
[2021-10-22 12:26] LABS: AMYLASE 37 U/L (25-115); C REACTIVE PROTEIN QUANTITATIV < 0.30 MG/DL (0.00-0.30)
[2021-10-22 12:37] LABS: ABG BASE EXCESS -2.4 (-2.0-2.0); ABG O2 SATURATION 96.1 % (95.0-99.0); ABG PARTIAL PRESSURE CO2 36.6 mmHg (35.0-45.0); ABG PARTIAL PRESSURE O2 83.9 mmHg (75.0-100.0); ABG STANDARD HCO3 22.4 MEQ/L (22.0-26.0); ABG TOTAL CO2 23.1 MEQ/L (23.0-31.0); ABG pH (ARTERIAL) 7.396 UNITS (7.350-7.450)
--- NOTE | 2021-10-22 12:39 | REP ---
INDICATION: r/o ischemic colitis. COMPARISON: 12/18/2020 a noncontrast enhanced exam TECHNIQUE: Standard helical technique after the intravenous administration of 100 cc Isovue 370. FINDINGS: The lung bases are clear and unchanged. The liver and spleen are unchanged. There are multiple cysts and hemangiomas better imaged on an MRI examination that was performed 01/16/2021. All interested parties should review that report. The gallbladder, pancreas, adrenal glands, and kidneys are within normal limits. The abdominal aorta and para-regions are within normal limits. The bowel loops and the mesenteries are within normal limits. There is no evidence of a mass or adenopathy. There is a large unchanged right-sided para umbilical hernia and again through which only mesentery protrudes. There is no evidence of mesenteric fatty infiltration. The aperture of the hernia measures approximately 2.5 cm status quo. Bone window technique throughout the examination shows no change in the osseous structures. IMPRESSION: There is no evidence of acute disease. Chronic changes and findings as described above. <Electronically signed by Bart Liao > 10/22/21 [id number]
[2021-10-22 17:15] VITALS: BP 138/74
--- NOTE | 2021-10-22 19:41 | ECGEPIP ---
[facility] - ED Test Date: 2021-10-22 Pat Name: MARCIAL MARQUEZ Department: Room: - Gender: Female Group Cio: MARIANELA : 1955 Requested By: Declan Fofana Order Number: [id number] Reading MD: Arti Ellis Measurements Intervals [place] Rate: 48 P: -9 AK: 116 QRS: 38 QRSD: 92 T: 30 QT: 502 QTc: 448 Interpretive Statements Sinus bradycardia decreased rate 12/11/17 Electronically Signed on 10-22-2021 19:41:29 EST by Arti Ellis
--- NOTE | 2021-10-23 08:48 | ED PDOC ---
Post-Departure Follow-Up dr kimbrough faxed formal report of ct abd/p for fu Nisha Mcgregor MD Oct 23, 2021 08:48
== END 2021-10-22 17:40 | disposition home or self-care (01) ==
LOC: EDBD 10:35 → M ED 10:35
DX: K42.9 Umbilical hernia without obstruction or gangrene (principal); F10.10 Alcohol abuse, uncomplicated; F33.9 Major depressive disorder, recurrent, unspecified; F41.9 Anxiety disorder, unspecified; E04.2 Nontoxic multinodular goiter; J30.89 Other allergic rhinitis; Z79.899 Other long term (current) drug therapy; Z87.891 Personal history of nicotine dependence
CPT/HCPCS: 36600; 74177; 80048; 80076; 81001; 82150; 82803; 83605; 85025; 86140; 87040; 87077; 87086; 87186; 87631; 93005; 93041; 96365; 99285; J0692; Q9967

== ENCOUNTER → 2023-02-01 | Outpatient (REF) | payer MEDICARE, MEDICAID | LOC: M SFHCWAGY 14:44 | PROVIDERS: ATTEND Nurse Practitioner Family | DX: Z12.4 Encounter for screening for malignant neoplasm of cervix (principal) ==

== ENCOUNTER → 2023-02-01 | Outpatient (CLI) | payer MEDICARE, MEDICAID | LOC: M WHC 09:28 | PROVIDERS: ATTEND Nurse Practitioner Family | DX: Z12.31 Encounter for screening mammogram for malignant neoplasm of breast (principal) ==

== ENCOUNTER → 2023-02-05 | Outpatient (CLI) | payer MEDICARE, MEDICAID | LOC: M WHC 13:08 | PROVIDERS: ATTEND Nurse Practitioner Family | DX: Z13.820 Encounter for screening for osteoporosis (principal); M85.851 Other specified disorders of bone density and structure, right thigh; M85.852 Other specified disorders of bone density and structure, left thigh ==

== ENCOUNTER → 2023-08-03 | Outpatient (CLI) | payer MEDICARE, MEDICAID ==
[2023-08-03 19:04] LABS: HEMOGLOBIN A1c 4.9 % (4.0-6.0)
[2023-08-03 19:26] LABS: FREE T4 1.14 NG/DL (0.89-1.76); THYROID STIMULATING HORMONE 1.994 uIU/ML (0.55-4.78)
[2023-08-03 19:27] LABS: ALBUMIN 3.4 G/DL (3.2-5.2); ALKALINE PHOSPHATASE 83 U/L (46-116); ALT/SGPT 18 U/L (7.0-40); AST/SGOT 20 U/L (<34); BILIRUBIN,TOTAL 0.6 MG/DL (0.3-1.2); BLOOD UREA NITROGEN 12 MG/DL (9-23); CALCIUM LEVEL 9.1 MG/DL (8.3-10.6); CARBON DIOXIDE LEVEL 28 MMOL/L (20-31); CHLORIDE LEVEL 106 MMOL/L (98-107); CHOLESTEROL LEVEL 194 MG/DL (<200); CHOLESTEROL RISK RATIO 2.85 (<5); CREATININE FOR GFR 0.67 MG/DL (0.55-1.30); GLOMERULAR FILTRATION RATE > 60.0 (>45); GLUCOSE, FASTING 78 MG/DL (74-106); HDL CHOLESTEROL 67.9 MG/DL (>40); LDL CHOLESTEROL 101.1 MG/DL (<100); NON-HDL-C 126.1 MG/DL; POTASSIUM SERUM 3.9 MMOL/L (3.5-5.1); SODIUM LEVEL 141 MMOL/L (136-145); TOTAL PROTEIN 6.7 G/DL (5.7-8.2); TRIGLYCERIDES LEVEL 125 MG/DL (<150)
[2023-08-03 19:29] LABS: FOLATE 17.15 NG/ML (>5.4); VITAMIN B12 LEVEL 356 PG/ML (211-911)
[2023-08-03 20:00] LABS: HEPATITIS C VIRUS ABY INDEX 0.05 INDEX (<0.8)
== END ==
LOC: M PLALAB 13:24
PROVIDERS: ATTEND Student in an Organized Health Care Education/Training Program
DX: F10.10 Alcohol abuse, uncomplicated (principal); Z13.29 Encounter for screening for other suspected endocrine disorder; Z13.1 Encounter for screening for diabetes mellitus; Z13.220 Encounter for screening for lipoid disorders

== ENCOUNTER → 2024-02-29 | Outpatient (CLI) | payer MEDICARE, MEDICAID | LOC: M WHC 10:16 | PROVIDERS: ATTEND Student in an Organized Health Care Education/Training Program | DX: Z12.31 Encounter for screening mammogram for malignant neoplasm of breast (principal) ==

== ENCOUNTER → 2024-08-01 | Outpatient (CLI) | payer MEDICARE, MEDICAID ==
[2024-08-01 10:19] LABS: BASO # 0.1 10^3/uL (0.0-0.2); BASO % 1.2 % (0.0-1.0); EOS # 0.2 10^3/uL (0.0-0.5); EOS % 4.6 % (0.0-3.0); HEMATOCRIT 40.4 % (36.0-47.0); HEMOGLOBIN 13.4 g/dl (12.0-15.5); LYMPH # 1.4 10^3/uL (1.5-5.0); LYMPH % 27.8 % (24.0-44.0); MEAN CORPUSCULAR HGB CONC 33.2 g/dl (32.0-36.5); MEAN CORPUSCULAR VOLUME 102.5 fl (80.0-96.0); MONO # 0.6 10^3/uL (0.0-0.8); MONO % 11.9 % (2.0-8.0); NEUTROPHILS # 2.7 10^3/uL (1.5-8.5); NEUTROPHILS % 54.3 % (36.0-66.0); PLATELET COUNT, AUTOMATED 255 10^3/uL (150-450); RED BLOOD COUNT 3.94 10^6/uL (4.00-5.40)
[2024-08-01 10:42] LABS: ALBUMIN 3.6 G/DL (3.2-5.2); ALKALINE PHOSPHATASE 92 U/L (46-116); ALT/SGPT 17 U/L (7.0-40); AST/SGOT 16 U/L (<34); BILIRUBIN,TOTAL 0.9 MG/DL (0.3-1.2); BLOOD UREA NITROGEN 16 MG/DL (9-23); CALCIUM LEVEL 9.6 MG/DL (8.3-10.6); CARBON DIOXIDE LEVEL 29 MMOL/L (20-31); CHLORIDE LEVEL 107 MMOL/L (98-107); CHOLESTEROL LEVEL 234 MG/DL (<200); CHOLESTEROL RISK RATIO 3.07 (<5); CREATININE FOR GFR 0.74 MG/DL (0.55-1.30); GLOMERULAR FILTRATION RATE > 60.0 (>39); GLUCOSE, FASTING 89 MG/DL (74-106); POTASSIUM SERUM 4.4 MMOL/L (3.5-5.1); SODIUM LEVEL 141 MMOL/L (136-145); TRIGLYCERIDES LEVEL 110 MG/DL (<150)
[2024-08-01 10:48] LABS: THYROID STIMULATING HORMONE 2.046 uIU/ML (0.55-4.78)
[2024-08-01 10:55] LABS: FREE T4 1.34 NG/DL (0.89-1.76)
[2024-08-01 11:00] LABS: HEMOGLOBIN A1c 5.1 % (4.0-6.0)
[2024-08-02 15:45] LABS: FOLATE 22.3 NG/ML (>5.4); VITAMIN B12 LEVEL 325 PG/ML (211-911)
== END ==
LOC: M PLALAB 07:14
PROVIDERS: ATTEND Student in an Organized Health Care Education/Training Program
DX: Z00.00 Encounter for general adult medical examination without abnormal findings (principal); D75.89 Other specified diseases of blood and blood-forming organs

== ENCOUNTER 2024-11-17 07:02 | Day surgery (SDC) | payer MEDICARE, MEDICAID ==
[~2024-11-17] VITALS: Ht 162.6 cm; Wt 87.3 kg
[~2024-11-17 07:02] MED LIST changes: +PRESCAP PO; +VITA100093 PO
[2024-11-17 09:42] VITALS: TEMP 97
[2024-11-17 10:08] VITALS: BP 142/79; O2SAT 95
== END 2024-11-17 10:15 | disposition home or self-care (01) ==
LOC: M OPP 07:02
PROVIDERS: ATTEND Surgery
DX: Z12.11 Encounter for screening for malignant neoplasm of colon (principal); K57.30 Diverticulosis of large intestine without perforation or abscess without bleeding; K64.0 First degree hemorrhoids; Z91.09 Other allergy status, other than to drugs and biological substances; Z79.899 Other long term (current) drug therapy

== ENCOUNTER → 2024-11-27 | Outpatient (REF) | payer MEDICARE, MEDICAID | LOC: M SFHCPLAZ 15:58 | PROVIDERS: ATTEND Student in an Organized Health Care Education/Training Program | DX: Z53.21 Procedure and treatment not carried out due to patient leaving prior to being seen by health care provider (principal) ==

== ENCOUNTER → 2024-11-29 | Outpatient (CLI) | payer MEDICARE, MEDICAID ==
[2024-11-29 13:17] LABS: BASO # 0.1 10^3/uL (0.0-0.2); BASO % 0.9 % (0.0-1.0); EOS # 0.2 10^3/uL (0.0-0.5); EOS % 4.1 % (0.0-3.0); HEMATOCRIT 40.3 % (36.0-47.0); HEMOGLOBIN 13.1 g/dl (12.0-15.5); LYMPH # 1.4 10^3/uL (1.5-5.0); LYMPH % 25.3 % (24.0-44.0); MEAN CORPUSCULAR HEMOGLOBIN 33.8 pg (27.0-33.0); MEAN CORPUSCULAR HGB CONC 32.5 g/dl (32.0-36.5); MEAN CORPUSCULAR VOLUME 103.9 fl (80.0-96.0); MONO # 0.7 10^3/uL (0.0-0.8); MONO % 12.7 % (2.0-8.0); NEUTROPHILS # 3.1 10^3/uL (1.5-8.5); NEUTROPHILS % 56.6 % (36.0-66.0); PLATELET COUNT, AUTOMATED 268 10^3/uL (150-450); RED BLOOD COUNT 3.88 10^6/uL (4.00-5.40); WHITE BLOOD COUNT 5.4 10^3/uL (4.0-10.0)
[2024-11-29 13:41] LABS: ALBUMIN 3.5 G/DL (3.2-5.2); ALKALINE PHOSPHATASE 81 U/L (35-104); ALT/SGPT 20 U/L (7.0-40); AST/SGOT 20 U/L (<34); BILIRUBIN,TOTAL 0.8 MG/DL (0.3-1.2); BLOOD UREA NITROGEN 17 MG/DL (9-23); CARBON DIOXIDE LEVEL 28 MMOL/L (20-31); CHLORIDE LEVEL 107 MMOL/L (98-107); CHOLESTEROL LEVEL 225 MG/DL (<200); CREATININE FOR GFR 0.66 MG/DL (0.55-1.30); GLOMERULAR FILTRATION RATE > 60.0 (>39); GLUCOSE, FASTING 92 MG/DL (74-106); HDL CHOLESTEROL 80.2 MG/DL (>40); LDL CHOLESTEROL 129.4 MG/DL (<100); NON-HDL-C 144.8 MG/DL; POTASSIUM SERUM 4.7 MMOL/L (3.5-5.1); SODIUM LEVEL 142 MMOL/L (136-145); TOTAL PROTEIN 6.9 G/DL (5.7-8.2); TRIGLYCERIDES LEVEL 77 MG/DL (<150)
== END ==
LOC: M PLALAB 09:57
PROVIDERS: ATTEND Student in an Organized Health Care Education/Training Program
DX: E78.2 Mixed hyperlipidemia (principal); F10.10 Alcohol abuse, uncomplicated; D75.89 Other specified diseases of blood and blood-forming organs

== ENCOUNTER → 2025-06-12 | Outpatient (CLI) | payer MEDICARE, MEDICAID ==
[~2025-06-12] MED LIST changes: -PROZ20CA11 PO; +PROZ20CA12 PO
== END ==
LOC: M WHC 12:39
PROVIDERS: ATTEND Nurse Practitioner Family
DX: Z12.31 Encounter for screening mammogram for malignant neoplasm of breast (principal); Z13.820 Encounter for screening for osteoporosis; R92.323 Mammographic fibroglandular density, bilateral breasts; M85.89 Other specified disorders of bone density and structure, multiple sites